=== PATIENT | female | born 1950 | race Caucasian/White ===

== ENCOUNTER 2018-01-26 16:14 | Observation (INO) | payer MEDICARE, OTHER ==
[2018-01-26 17:24] VITALS: BP 155/69; PULSE 65; RESP 18; TEMP 98; O2SAT 99
[2018-01-26 18:09] LABS: AUTOMATED NEUTROPHIL # 3.2 TH/MM3 (1.8-7.7); BASOPHIL % 0.8 % (0.0-2.0); EOSINOPHIL # 0.1 TH/MM3 (0-0.4); EOSINOPHIL % 1.9 % (0.0-4.0); HEMATOCRIT 38.2 % (35.0-46.0); HEMOGLOBIN 12.9 GM/DL (11.6-15.3); LYMPH % 31.4 % (9.0-44.0); LYMPHOCYTE # 1.6 TH/MM3 (1.0-4.8); MEAN CELL VOLUME 92.5 FL (80.0-100.0); MEAN CORPUSCULAR HEMOGLOBIN 31.1 PG (27.0-34.0); MEAN CORPUSCULAR HGB CONC 33.7 % (32.0-36.0); MEAN PLATELET VOLUME 9.4 FL (7.0-11.0); MONO % 5.4 % (0.0-8.0); MONOCYTE # 0.3 TH/MM3 (0-0.9); NEUT % 60.5 % (16.0-70.0); PLATELET COUNT 160 TH/MM3 (150-450); RED BLOOD COUNT 4.13 MIL/MM3 (4.00-5.30); RED CELL DISTRIBUTION WIDTH 13.6 % (11.6-17.2); WHITE BLOOD COUNT 5.3 TH/MM3 (4.0-11.0)
--- NOTE | 2018-01-26 18:16 | RADRPT ---
EXAM DATE: 01/26/2018 6:06 PM EDT AGE/SEX: 67 years / Female INDICATIONS: Altered mental status. CLINICAL DATA: This is the patient's initial encounter. Patient reports that signs and symptoms have been present for 1 day and indicates a pain score of Nonresponsive. MEDICAL/SURGICAL HISTORY: . Alzheimers.Cerebral ischemia. None. RADIATION DOSE: 35.14 CTDI (mGy) COMPARISON: . TECHNIQUE: CT of the head without contrast. Using automated exposure control and adjustment of the mA and/or kV according to patient size, radiation dose was kept as low as reasonably achievable to ob tain optimal diagnostic quality images. FINDINGS: Cerebrum: The ventricles are normal for age. No evidence of midline shift, mass lesion, hemorrhage or acute infarction. No extraaxial fluid collections are seen. Posterior Fossa: The cerebellum and brainstem are intact. The 4th ventricle is midline. The cerebe llopontine angle is unremarkable. Extracranial: The visualized portion of the orbits is intact. Skull: The calvaria is intact. No evidence of skull fracture. CONCLUSION: 1. Negative CT Head non contrast. Electronically signed by: Burton Mera MD 01/26/2018 6:14 PM EDT
--- NOTE | 2018-01-26 18:25 | PD ---
HPI Chief Complaint: Altered Mental Status Time Seen by Provider: 17:09 Travel History International Travel<30 days: No Contact w/Intl Traveler<30days: No Traveled to known affect area: No History of Present Illness HPI 67-year-old female that presents to the ED for evaluation of Rex shen. Patient was Rex acted after apparently she has been acting up. She apparently put a bag on her head and has been somewhat aggressive. She denies any injuries but the patient herself is nonverbal and cannot really give us any information. She does appear to have a history of Alzheimer's and apparently she is a hospice patient. She takes different medications that are all given by the hospice service. She voices no complaints to me and appears to be in no acute distress. She was Rex acted for her own safety. She is a DNR. Again history is very limited because of the patient's mental status. PFSH Past Medical History Alzheimer's Disease: Yes Anxiety: Yes Medical other: Yes (cerebral ischemia ) Tetanus Vaccination: Unknown Past Surgical History Surgical History: Unable to Obtain Social History Alcohol Use: No Tobacco Use: No Substance Use: No Allergies-Medications (Allergen,Severity, Reaction): Coded Allergies: trazodone (Verified Allergy, Unknown, 01/26/18) Reported Meds & Prescriptions Reported Meds & Active Scripts Active Reported Hyoscyamine Sulfate 0.125 Mg Sub Sennosides 8.6 Mg Tab 8.6 Mg PO HS Quetiapine (Quetiapine Fumarate) 100 Mg Tab 100 Mg PO BID Prochlorperazine Maleate 10 Mg Tab 10 Mg PO Q6H PRN Paxil Liq (Paroxetine HCl) 10 Mg/5 Ml Siobhan 20 Mg PO DAILY Lorazepam 0.5 Mg Tab 0.5 Mg PO Q4H PRN Review of Systems ROS Limitations: Altered Mental Status, Poor Historian Except as stated in HPI: all other systems reviewed are Neg Physical Exam Exam Limitations: Altered Mental Status, Poor Historian Narrative GENERAL: SKIN: Warm and dry. HEAD: Atraumatic. Normocephalic. EYES: Pupils equal and round. No scleral icterus. No injection or drainage. ENT: No nasal bleeding or discharge. Mucous membranes pink and moist. Tongue is midline. No uvula deviation. NECK: Trachea midline. No JVD. CARDIOVASCULAR: Regular rate and rhythm. No murmurs, S3, S4. RESPIRATORY: No accessory muscle use. Clear to auscultation. Breath sounds equal bilaterally. GASTROINTESTINAL: Abdomen soft, non-tender, nondistended. Hepatic and splenic margins not palpable. MUSCULOSKELETAL: Extremities without clubbing, cyanosis, or edema. No obvious deformities. Full range of motion of the upper and lower extremities bilaterally. 2+ pulses bilaterally. NEUROLOGICAL: Awake and alert. No obvious cranial nerve deficits. Motor grossly within normal limits. Five out of 5 muscle strength in the arms and legs. Normal speech. PSYCHIATRIC: Appropriate mood and affect; insight and judgment normal. Data Data Last Documented VS Vital Signs Date Time Temp Pulse Resp B/P (MAP) Pulse Ox O2 Delivery O2 Flow Rate FiO2 01/26/18 17:24 98.0 65 18 155/69 (97) 99 Room Air Orders Orders Complete Blood Count With Diff (01/26/18 17:19) Comprehensive Metabolic Panel (01/26/18 17:19) Urinalysis - C+S If Indicated (01/26/18 17:19) Magnesium (Mg) (01/26/18 17:19) Thyroid Stimulating Hormone (01/26/18 17:19) Ct Brain W/O Iv Contrast(Rout) (01/26/18 17:19) Iv Access Insert/Monitor (01/26/18 17:19) Urinary Catheter Insert/Apply (01/26/18 17:19) Drug Screen, Random Urine (01/26/18 17:19) Alcohol (Ethanol) (01/26/18 17:19) ^ Sitter (01/26/18 17:21) Psych Screen (01/26/18 17:40) Urine Culture (01/26/18 17:35) Ceftriaxone Inj (Rocephin Inj) (01/26/18 18:45) Diet As Tolerated (01/26/18 18:56) Admit Order (Ed Use Only) (01/26/18 19:40) Labs Laboratory Tests Test 01/26/18 17:30 01/26/18 17:35 White Blood Count 5.3 TH/MM3 Red Blood Count 4.13 MIL/MM3 Hemoglobin 12.9 GM/DL Hematocrit 38.2 % Mean Corpuscular Volume 92.5 FL Mean Corpuscular Hemoglobin 31.1 PG Mean Corpuscular Hemoglobin Concent 33.7 % Red Cell Distribution Width 13.6 % Platelet Count 160 TH/MM3 Mean Platelet Volume 9.4 FL Neutrophils (%) (Auto) 60.5 % Lymphocytes (%) (Auto) 31.4 % Monocytes (%) (Auto) 5.4 % Eosinophils (%) (Auto) 1.9 % Basophils (%) (Auto) 0.8 % Neutrophils # (Auto) 3.2 TH/MM3 Lymphocytes # (Auto) 1.6 TH/MM3 Monocytes # (Auto) 0.3 TH/MM3 Eosinophils # (Auto) 0.1 TH/MM3 Basophils # (Auto) 0.0 TH/MM3 CBC Comment DIFF FINAL Differential Comment Blood Urea Nitrogen 21 MG/DL Creatinine 0.71 MG/DL Random Glucose 121 MG/DL Total Protein 6.8 GM/DL Albumin 3.7 GM/DL Calcium Level 8.7 MG/DL Magnesium Level 2.4 MG/DL Alkaline Phosphatase 66 U/L Aspartate Amino Transf (AST/SGOT) 19 U/L Alanine Aminotransferase (ALT/SGPT) 18 U/L Total Bilirubin 0.3 MG/DL Sodium Level 142 MEQ/L Potassium Level 3.2 MEQ/L Chloride Level 106 MEQ/L Carbon Dioxide Level 28.8 MEQ/L Anion Gap 7 MEQ/L Estimat Glomerular Filtration Rate 83 ML/MIN Thyroid Stimulating Hormone 3rd Gen 1.300 uIU/ML Ethyl Alcohol Level LESS THAN 3 MG/DL Urine Color YELLOW Urine Turbidity HAZY Urine pH 6.0 Urine Specific [place] 1.029 Urine Protein TRACE mg/dL Urine Glucose (UA) NEG mg/dL Urine Ketones NEG mg/dL Urine Occult Blood NEG Urine Nitrite POS Urine Bilirubin NEG Urine Urobilinogen LESS THAN 2.0 MG/DL Urine Leukocyte Esterase LARGE Urine RBC 2 /hpf Urine WBC /hpf Urine Amorphous Sediment RARE Urine Bacteria MANY /hpf Urine Mucus MANY /lpf Microscopic Urinalysis Comment CULTURE INDICATED Urine Opiates Screen NEG Urine Barbiturates Screen NEG Urine Amphetamines Screen NEG Urine Benzodiazepines Screen NEG Urine Cocaine Screen NEG Urine Cannabinoids Screen NEG MDM Medical Decision Making Medical Screen Exam Complete: Yes Emergency Medical Condition: Yes Medical Record Reviewed: Yes Interpretation(s) CBC & BMP Diagram 01/26/18 17:30 Total Protein 6.8, Albumin 3.7, Calcium Level 8.7, Magnesium Level 2.4, Alkaline Phosphatase 66, Aspartate Amino Transf (AST/SGOT) 19, Alanine Aminotransferase (ALT/SGPT) 18, Total Bilirubin 0.3 UA shows UTI Last Impressions Head CT 01/26/18 7948 Signed Impressions: CONCLUSION: 1. Negative CT Head non contrast. Differential Diagnosis Depression versus suicidal ideation versus anxiety versus adjustment disorder versus mood disorder versus bipolar disorder versus schizophrenia versus paranoid disorder versus psychosis versus substance abuse versus alcohol abuse versus alcohol induced psychosis versus homicidality addition versus cutting versus personality disorder versus UTI Narrative Course 67-year-old female that presents to the ED for evaluation of Goodman act. Patient was properly examined and was found to have signs and symptoms of unclear etiology but appear to be altered mental status with possible psychiatric in nature. She does have a significant history of Alzheimer's and she is in hospice for this. History is very limited and only obtained from paperwork provided. Labs were ordered. Urine was ordered. Psych screen was ordered. Labs and imaging were essentially unremarkable return for UTI. I spoke with the hospice nurse who is concerned that the patient cannot [facility] back [facility] the [facility] as the prison apparently will not take the patient back secondary to agitation. They want us to see we could admit the patient as patient will likely need case management involvement to get her placed as well as monitoring for her behavioral issues. Case was discussed with the residents who agreed to admission. This was discussed with my attending who agrees with plan. Patient will likely benefit from psych evaluation for further treatment of the Alzheimer's and behavioral issues. Diagnosis Primary Impression: Alzheimer disease Qualified Codes: G30.1 - Alzheimer's disease with late onset; F02.81 - Dementia in other diseases classified elsewhere with behavioral disturbance Admitting Information Admitting Physician Requests: Ivan Acosta Jan 26, 2018 18:25
[2018-01-26 18:31] LABS: ALBUMIN 3.7 GM/DL (3.4-5.0); ALT (GPT) 18 U/L (10-53); AST (GOT) 19 U/L (15-37); BICARBONATE 28.8 MEQ/L (21.0-32.0); BLOOD UREA NITROGEN 21 MG/DL (7-18); CALCIUM 8.7 MG/DL (8.5-10.1); CHLORIDE 106 MEQ/L (98-107); CREATININE 0.71 MG/DL (0.50-1.00); GLOMERULAR FILTRATION RATE 83 ML/MIN (>89); GLUCOSE,RANDOM 121 MG/DL (74-106); MAGNESIUM 2.4 MG/DL (1.5-2.5); SODIUM (NA) 142 MEQ/L (136-145)
[2018-01-26 18:32] LABS: AMORPHOUS SEDIMENT, URINE RARE; BACTERIA, URINE MANY /hpf; BILIRUBIN, URINE NEG (NEG); BLOOD, URINE NEG (NEG); GLUCOSE,URINE NEG (NEG); KETONE, URINE NEG (NEG); MUCUS URINE MANY /lpf (OCC); NITRITE,URINE POS (NEG); URINE COLOR YELLOW (YELLW/STRAW); URINE LEUKOCYTE ESTERASE LARGE (NEG)
[2018-01-26 18:41] LABS: ALKALINE PHOSPHATASE 66 U/L (45-117); TOTAL BILIRUBIN ADULT 0.3 MG/DL (0.2-1.0); TOTAL PROTEIN 6.8 GM/DL (6.4-8.2)
[2018-01-26] MEDS ORDERED: cefTRIAXone INJ 1,000 MG in SODIUM CHLORIDE 0.9% INJ 100 ML IV ONE (18:45)
[2018-01-26] MEDS ORDERED: QUET1TAB8 PO (19:10)
[2018-01-26] MEDS ORDERED: SENN8.6T81 PO (19:10)
[2018-01-26] MEDS ORDERED: LORA0.5T PO (19:10)
[2018-01-26] MEDS ORDERED: HYOS0.1261 (19:10)
[2018-01-26] MEDS ORDERED: PROC10TA PO (19:10)
[2018-01-26] MEDS ORDERED: PARO10S PO (19:10)
--- NOTE | 2018-01-26 20:49 | HHI.HP ---
[facility] Family Medicine Primary Care Physician Yahir Bowling M.D. Admission Diagnosis altered mental status, UTI Diagnoses: Chief Complaint: AMS, Oneal acted for suicide attempt International Travel<30 Days: No Contact w/Intl Traveler<30days: No Known Affected Area: No History of Present Illness Ms Mcguire is a 67 YO female w/PMHx of Alzheimers dementia, cerebral ischemia unspecified, and recurrent UTIs brought to the ED and Goodman Acted after an apparent suicide attempt at her SNF. Records indicate she placed a bag over her head at [facility] which was believed at the time to be a suicide attempt and was brought to the ED from there. 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 Pt is minimally verbal due to her dementia per phone discussion with her daughter Kimberly. Pt's , daughter and son live in [place] and indicate pt was recently placed with [facility]. Daughter believes her mother would not try to commit suicide as her mother lacks capacity to do so. Daughter believes her mother was altered due to a UTI which recurs frequently. and daughter have HCPOA/surrogate paperwork which is on her chart. Review of Systems ROS Limitations: Altered Mental Status, Uncooperative Past Family Social History Past Medical History Cerebral ischemia unspecified Alzheimers dementia Recurrent UTIs Past Surgical History could not obtain Reported Medications Reported Meds & Active Scripts Active Reported Hyoscyamine Sulfate 0.125 Mg Sub Sennosides 8.6 Mg Tab 8.6 Mg PO HS Quetiapine (Quetiapine Fumarate) 100 Mg Tab 100 Mg PO BID Prochlorperazine Maleate 10 Mg Tab 10 Mg PO Q6H PRN Paxil Liq (Paroxetine HCl) 10 Mg/5 Ml Siobhan 20 Mg PO DAILY Lorazepam 0.5 Mg Tab 0.5 Mg PO Q4H PRN Allergies: Coded Allergies: trazodone (Verified Allergy, Unknown, 01/26/18) Active Ordered Medications Current Medications Medications (Trade) Dose Ordered Sig/Tomas Route Start Time Stop Time Status Last Admin (Paxil Liq) 20 mg DAILY PO 01/27/18 09:00 (Compazine) 10 mg Q6H PRN PO 01/26/18 21:00 (Senokot) 8.6 mg HS PO 01/26/18 21:00 01/26/18 22:17 (NS Flush) 2 ml UNSCH PRN IV FLUSH 01/26/18 21:00 (NS Flush) 2 ml BID IV FLUSH 01/26/18 21:00 (Tylenol) 650 mg Q4H PRN PO 01/26/18 21:00 (Lovenox Inj) 40 mg Q24H SQ 01/26/18 21:00 01/26/18 21:00 (Narcan Inj) 0.4 mg UNSCH PRN IV PUSH 01/26/18 21:00 (SEROquel) 100 mg BID PO 01/27/18 09:00 (Ativan) 0.5 mg Q4H PRN PO 01/26/18 21:30 Ceftriaxone Sodium 1000 mg/ Sodium Chloride 100 ml @ 200 mls/hr Q24H IV 01/27/18 18:45 Sodium Chloride 1,000 ml @ 50 mls/hr Q20H IV 01/26/18 21:30 01/26/18 21:30 Family History could not obtain Social History Lives at [facility] (likely will not be able to go back) [facility] , daughter and son live in [place] Physical Exam Vital Signs Vital Signs Date Time Temp Pulse Resp B/P (MAP) Pulse Ox O2 Delivery O2 Flow Rate FiO2 01/26/18 17:24 98.0 65 18 155/69 (97) 99 Room Air Physical Exam GENERAL: This is a well-nourished, well-developed patient, minimally verbal and often speaks gibberish per her daughter, in NAD but appears a little anxious. SKIN: No rashes, ecchymoses or lesions. Cool and dry. HEAD: Atraumatic. Normocephalic. No temporal or scalp tenderness. EYES: Pupils equal round and reactive. Extraocular motions intact. No scleral icterus. No injection or drainage. ENT: Nose without drainage. Uvula midline. Airway patent. NECK: Trachea midline. No JVD or lymphadenopathy. Supple, nontender, no meningeal signs. CARDIOVASCULAR: Regular rate and rhythm without murmurs, gallops, or rubs. RESPIRATORY: Clear to auscultation. Breath sounds equal bilaterally. No wheezes , rales, or rhonchi. GASTROINTESTINAL: Abdomen soft, non-tender, nondistended. No hepato-splenomegaly , or palpable masses. No guarding. MUSCULOSKELETAL: Extremities without clubbing, cyanosis, or edema. No joint tenderness, effusion, or edema noted. No calf tenderness. Pt can ambulate around the room without difficulty. NEUROLOGICAL: Awake and alert. Cranial nerves II through XII intact. Motor and sensory grossly within normal limits. Pt has advanced dementia and can utter yes or no to questions, but are likely not accurate responses per her daughter. Laboratory Laboratory Tests Test 01/26/18 17:30 01/26/18 17:35 White Blood Count 5.3 Red Blood Count 4.13 Hemoglobin 12.9 Hematocrit 38.2 Mean Corpuscular Volume 92.5 Mean Corpuscular Hemoglobin 31.1 Mean Corpuscular Hemoglobin Concent 33.7 Red Cell Distribution Width 13.6 Platelet Count 160 Mean Platelet Volume 9.4 Neutrophils (%) (Auto) 60.5 Lymphocytes (%) (Auto) 31.4 Monocytes (%) (Auto) 5.4 Eosinophils (%) (Auto) 1.9 Basophils (%) (Auto) 0.8 Neutrophils # (Auto) 3.2 Lymphocytes # (Auto) 1.6 Monocytes # (Auto) 0.3 Eosinophils # (Auto) 0.1 Basophils # (Auto) 0.0 CBC Comment DIFF FINAL Differential Comment Blood Urea Nitrogen 21 Creatinine 0.71 Random Glucose 121 Total Protein 6.8 Albumin 3.7 Calcium Level 8.7 Magnesium Level 2.4 Alkaline Phosphatase 66 Aspartate Amino Transf (AST/SGOT) 19 Alanine Aminotransferase (ALT/SGPT) 18 Total Bilirubin 0.3 Sodium Level 142 Potassium Level 3.2 Chloride Level 106 Carbon Dioxide Level 28.8 Anion Gap 7 Estimat Glomerular Filtration Rate 83 Thyroid Stimulating Hormone 3rd Gen 1.300 Ethyl Alcohol Level LESS THAN 3 Urine Color YELLOW Urine Turbidity HAZY Urine pH 6.0 Urine Specific [place] 1.029 Urine Protein TRACE Urine Glucose (UA) NEG Urine Ketones NEG Urine Occult Blood NEG Urine Nitrite POS Urine Bilirubin NEG Urine Urobilinogen LESS THAN 2.0 Urine Leukocyte Esterase LARGE Urine RBC 2 Urine WBC Urine Amorphous Sediment RARE Urine Bacteria MANY Urine Mucus MANY Microscopic Urinalysis Comment CULTURE INDICATED Urine Opiates Screen NEG Urine Barbiturates Screen NEG Urine Amphetamines Screen NEG Urine Benzodiazepines Screen NEG Urine Cocaine Screen NEG Urine Cannabinoids Screen NEG Date/Time Source Procedure Growth Status 01/26/18 17:35 Urine Random Urine Urine Culture Pending Received Result Diagram: 01/26/18 1730 01/26/18 1730 Imaging Last Impressions Head CT 01/26/18 1719 Signed Impressions: CONCLUSION: 1. Negative CT Head non contrast. Septic Shock Reassessment Septic shock perfusion: reassessment completed Caprini VTE Risk Assessment Caprini VTE Risk Assessment: Mod/High Risk (score >= 2) Caprini Risk Assessment Model Point Value = 1 Point Value = 2 Point Value = 3 Point Value = 5 Age 41-60 Minor surgery BMI > 25 kg/m2 Swollen legs Varicose veins or History of unexplained or recurrent spontaneous Oral contraceptives or hormone replacement Sepsis (< 1 month) Serious lung disease, including pneumonia (< 1 month) Abnormal pulmonary function Acute myocardial infarction Congestive heart failure (< 1 month) History of inflammatory bowel disease Medical patient at bed rest Age 61-74 Arthroscopic surgery Major open surgery (> 45 min) Laparoscopic surgery (> 45 min) Malignancy Confined to bed (> 72 hours) Immobilizing plaster cast Central venous access Age >= 75 History of VTE Family history of VTE Factor V Leiden Prothrombin [id number] Lupus anticoagulant Anticardiolipin antibodies Elevated serum homocysteine Heparin-induced thrombocytopenia Other congenital or acquired thrombophilia Stroke (< 1 month) Elective arthroplasty Hip, pelvis, or leg fracture Acute spinal cord injury (< 1 month) Prophylaxis Regimen Total Risk Factor Score Risk Level Prophylaxis Regimen 0-1 Low Early ambulation 2 Moderate Order ONE of the following: *Sequential Compression Device (SCD) *Heparin 5000 units SQ BID 3-4 Higher Order ONE of the following medications: *Heparin 5000 units SQ TID *Enoxaparin/Lovenox 40 mg SQ daily (WT < 150 kg, CrCl > 30 mL/min) *Enoxaparin/Lovenox 30 mg SQ daily (WT < 150 kg, CrCl > 10-29 mL/min) *Enoxaparin/Lovenox 30 mg SQ BID (WT < 150 kg, CrCl > 30 mL/min) AND/OR *Sequential Compression Device (SCD) 5 or more Highest Order ONE of the following medications: *Heparin 5000 units SQ TID (Preferred with Epidurals) *Enoxaparin/Lovenox 40 mg SQ daily (WT < 150 kg, CrCl > 30 mL/min) *Enoxaparin/Lovenox 30 mg SQ daily (WT < 150 kg, CrCl > 10-29 mL/min) *Enoxaparin/Lovenox 30 mg SQ BID (WT < 150 kg, CrCl > 30 mL/min) AND *Sequential Compression Device (SCD) Assessment and Plan Assessment and Plan 67 YO female with unknown PMHx admitted after being Rex Acted for possible suicide attempt at [facility] and incidentally found to be hypokalemic and with a UTI. Pt is minimally verbal and lacks capacity to respond to questions. Pt's HCPOA/surrogates are her and daughter. Code Status DNR per daughter Discussed Condition With Dr Croinn Problem List: (1) Suicidal behavior ICD Codes: R46.89 - Other symptoms and signs involving appearance and behavior Plan: Pt placed a bag over her head at [facility] and was Rex Acted for attempting suicide. Pt's daughter does not believe her mother has capacity to attmept suicide and believes this action was 2/2 UTI and AMS. -Psychiatry consult -Sitter -Neuro checks (2) UTI (urinary tract infection) ICD Codes: N39.0 - Urinary tract infection, site not specified Plan: Pt with recurrent UTIs with UA positive nitrites and leuko esterase; urine cx pending -Rocephin 1g IV given in ED -Continue Rocephin 1g IV q24h until urine cx/susceptibility is known -Blood cx pending -CBC wnl (3) Altered mental status, unspecified ICD Codes: R41.82 - Altered mental status, unspecified Plan: Pt with UTI as above and possible suicide attempt; per pt's daughter, does not believe her mother would attempt suicide as she believes her mother lacks capacity to do so; believes AMS and suicide attempt to be 2/2 UTI. Pt Rex Acted. -CMP with hypokalemia to 3.2 -K-eff 50 meq PO once -BMP, CBC in AM -Psychiatry consult (4) Alzheimer disease ICD Codes: G30.9 - Alzheimer's disease, unspecified; F02.80 - Dementia in other diseases classified elsewhere without behavioral disturbance Status: Acute Plan: Plan as above (5) Delirium due to another medical condition ICD Codes: F05 - Delirium due to known physiological condition Plan: Continue pt's home medications -Seroquel 100mg BID -Paxil 20mg daily (6) Anxiety ICD Codes: F41.9 - Anxiety disorder, unspecified Plan: Per pt's daughter, she was concerned that we continue pt's home med: -Ativan 0.5mg q4h PRN (7) FEN/GI/PPx Plan: Fluids: NS IVF at 50mls/hr Electrolytes: hypokalemia as above; BMP to monitor Nutrition: regular basic diet -Nursing order to feed as pt cannot feed herself GI: none indicated PPx: Lovenox 40mg SQ daily Tylenol 650mg PO q4h temp >100.4 Continue pt's home meds: -Compazine 10mg PO q6h PRN nausea/vomiting -Senokot 8.6mg PO qhs Case Management consult Palliative Care consult Problem Qualifiers (1) Alzheimer disease: Qualified Codes: G30.1 - Alzheimer's disease with late onset; F02.81 - Dementia in other diseases classified elsewhere with behavioral disturbance Landon Chang MD R1 Jan 26, 2018 20:49
[2018-01-26] MEDS ORDERED: PROCHLORPERAZINE MALEATE 10 MG TAB PO PRN (21:00)
[2018-01-26] MEDS ORDERED: SODIUM CHLORIDE 0.9% FLUSH 10 ML FLUSH IV FLUSH PRN (21:00)
[2018-01-26] MEDS: ENOXAPARIN SODIUM 40 MG/0.4 ML SYRINGE SQ SCH (21:00)
[2018-01-26] MEDS ORDERED: NALOXONE HCL 0.4 MG/ML AMP IV PUSH PRN (21:00)
[2018-01-26] MEDS ORDERED: ACETAMINOPHEN 325 MG TAB PO PRN (21:00)
[2018-01-26] MEDS ORDERED: QUEtiapine FUMARATE 100 MG TAB PO SCH (21:00)
[2018-01-26] MEDS ORDERED: cefTRIAXone INJ 1,000 MG in SODIUM CHLORIDE 0.9% INJ 100 ML IV SCH (21:15)
[2018-01-26] MEDS ORDERED: POTASSIUM CHLORIDE 25 MEQ EFFERVESCENT TAB PO ONE (21:30)
[2018-01-26] MEDS: SODIUM CHLOR 0.9% 1000 ML INJ 1,000 ML IV SCH (21:30)
[2018-01-26] MEDS ORDERED: QUEtiapine FUMARATE 100 MG TAB PO ONE (21:30)
[2018-01-26] MEDS: SENNOSIDES 8.6 MG TAB PO SCH (22:17)
--- NOTE | 2018-01-26 22:19 | RADRPT ---
EXAM DATE: 01/26/2018 9:36 PM EDT AGE/SEX: 67 years / Female INDICATIONS: Short of breath. CLINICAL DATA: This is the patient's initial encounter. Patient reports that signs and symptoms have been present for 1 day and indicates a pain score of 0/10. MEDICAL/SURGICAL HISTORY: None. None. COMPARISON: None. FINDINGS: PA and lateral views of the chest demonstrate the lungs to be symmetrically aerated without evidence of mass, infiltrate or effusion. The cardiomediastinal contours are unremarkable. Osseous structures are intact. CONCLUSION: Negative examination. Electronically signed by: Burton Mera MD 01/26/2018 10:18 PM EDT
[2018-01-26 23:12] VITALS: BP 115/75; PULSE 65; RESP 18; TEMP 98.4; O2SAT 98
[2018-01-26] MEDS: SODIUM CHLORIDE 0.9% FLUSH 10 ML FLUSH IV FLUSH SCH (23:24)
[2018-01-27 04:00] VITALS: BP 109/66; PULSE 59; RESP 18; TEMP 98; O2SAT 97
[2018-01-27 04:33] LABS: AUTOMATED NEUTROPHIL # 1.8 TH/MM3 (1.8-7.7); EOSINOPHIL # 0.1 TH/MM3 (0-0.4); EOSINOPHIL % 2.8 % (0.0-4.0); HEMATOCRIT 39.4 % (35.0-46.0); HEMOGLOBIN 13.6 GM/DL (11.6-15.3); LYMPH % 46.1 % (9.0-44.0); LYMPHOCYTE # 1.9 TH/MM3 (1.0-4.8); MEAN CELL VOLUME 90.1 FL (80.0-100.0); MEAN CORPUSCULAR HEMOGLOBIN 31.2 PG (27.0-34.0); MEAN CORPUSCULAR HGB CONC 34.6 % (32.0-36.0); MEAN PLATELET VOLUME 9.2 FL (7.0-11.0); MONO % 7.7 % (0.0-8.0); MONOCYTE # 0.3 TH/MM3 (0-0.9); NEUT % 42.4 % (16.0-70.0); PLATELET COUNT 146 TH/MM3 (150-450); RED BLOOD COUNT 4.37 MIL/MM3 (4.00-5.30); RED CELL DISTRIBUTION WIDTH 13.8 % (11.6-17.2); WHITE BLOOD COUNT 4.1 TH/MM3 (4.0-11.0)
[2018-01-27 04:36] LABS: ALBUMIN 3.4 GM/DL (3.4-5.0); ALT (GPT) 18 U/L (10-53); AST (GOT) 16 U/L (15-37); BICARBONATE 27.8 MEQ/L (21.0-32.0); BLOOD UREA NITROGEN 16 MG/DL (7-18); CHLORIDE 112 MEQ/L (98-107); CREATININE 0.65 MG/DL (0.50-1.00); GLOMERULAR FILTRATION RATE 91 ML/MIN (>89); GLUCOSE,RANDOM 84 MG/DL (74-106); SODIUM (NA) 146 MEQ/L (136-145)
[2018-01-27 04:37] LABS: ALKALINE PHOSPHATASE 61 U/L (45-117); TOTAL BILIRUBIN ADULT 0.5 MG/DL (0.2-1.0); TOTAL PROTEIN 6.4 GM/DL (6.4-8.2)
[2018-01-27 08:00] VITALS: BP 116/64; PULSE 67; RESP 16; TEMP 97.4; O2SAT 97
[2018-01-27 09:13] VITALS: O2SAT 97
--- NOTE | 2018-01-27 09:28 | PD.PSY.CON ---
Provisional Diagnosis Admission Date Jan 26, 2018 at 19:42 [place] I. Major neurocognitive disorder, Alzheimer's type [place] II. Deferred History of Present Illness Service Psychiatry Consult Requested By ER team Reason for Consult Suicidal attempt Primary Care Physician Yahir Bowling M.D. HPI The patient is 67-year-old woman, domiciled in shelter, , with psychiatric history of Alzheimer's dementia, history of behavioral disturbance, she is on Seroquel 100 mg twice daily, Paxil 20 mg, no previous psychiatric hospitalizations, no previous suicide attempts, medical history cerebral ischemia with recurrent UTIs who was brought to the emergency department because she was in "suicidal" at her shelter facility. She resides in a memory unit there. She is at [facility] hospice patient. She was initially Goodman acted because she was putting a bag over her head. Patient was consulted to me to address suicidal attempt. EMR was reviewed. The lateral information from her son was obtained. On psychiatric evaluation the patient is poorly cooperative. She just answer some of my questions. Patient reports feeling okay. She denies pain, denies distress. She seems to be quite distant, disoriented, unaware of the surrounding. I asked her multiple times about suicidality, the patient denies. She does not seem to be internally stimulated. as er son, the patient seems to be at her baseline today. He clarifies that the patient does not communicate. She is severely demented. Her , her son and her daughter agreed that the patient does not have any previous psychiatric history no previous suicide attempts. 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 They clarified that suicidality is no inpatient values she was most probably confused believing that she was wearing a mask in the hospital. ( Review of Systems Constitutional: DENIES: Diaphoretic episodes, Fatigue, Fever, Weight gain, Weight loss, Chills, Dizziness, Change in appetite, Night Sweats Endocrine: DENIES: Abnorml menstrual pattern, Heat/cold intolerance, Polydipsia , Polyuria, Polyphagia Eyes: DENIES: Blurred vision, Diplopia, Eye inflammation, Eye pain, Vision loss , Photosensitivity, Double Vision Ears, nose, mouth, throat: DENIES: Tinnitus, Hearing loss, Vertigo, Nasal discharge, Oral lesions, Throat pain, Hoarseness, Ear Pain, Running Nose, Epistaxis, Sinus Pain, Toothache, Odynophagia Respiratory: DENIES: Apneas, Cough, Snoring, Wheezing, Hemoptysis, Sputum production, Shortness of breath Cardiovascular: DENIES: Chest pain, Palpitations, Syncope, Dyspnea on Exertion , PND, Lower Extremity Edema, Orthopnea, Claudication Gastrointestinal: DENIES: Abdominal pain, Black stools, Bloody stools, Constipation, Diarrhea, Nausea, Vomiting, Difficulty Swallowing, Anorexia Genitourinary: DENIES: Abnormal vaginal bleeding, Dysmenorrhea, Dyspareunia, Sexual dysfunction, Urinary frequency, Urinary incontinence, Urgency, Hematuria , Dysuria, Nocturia, Vaginal discharge Musculoskeletal: DENIES: Joint pain, Muscle aches, Stiffness, Joint Swelling, Back pain, Neck pain Integumentary: DENIES: Abnormal pigmentation, Pruritus, Rash, Nail changes, Breast masses, Breast skin changes, Nipple discharge Immunologic/allergic: DENIES: Eczema, Urticaria Neurologic: DENIES: Abnormal gait, Headache, Localized weakness, Paresthesias, Seizures, Speech Problems, Tremor, Poor Balance Psychiatric: COMPLAINS OF: Confusion, DENIES: Anxiety, Mood changes, Depression , Hallucinations, Agitation, Suicidal Ideation, Homicidal Ideation, Delusions Past Family Social History Coded Allergies: trazodone (Verified Allergy, Unknown, 01/26/18) Active Scripts Sulfamethoxazole-Trimethoprim (Bactrim DS) 800-160 Mg Tab, 1 TAB PO BID for Infection, #6 TAB 0 Refills Prov:Zully Parada MD R1 01/27/18 Reported Medications Hyoscyamine Sulfate (Hyoscyamine Sulfate) 0.125 Mg Sub 01/26/18 Sennosides (Sennosides) 8.6 Mg Tab, 8.6 MG PO HS for Constipation, TAB 0 Refills 01/26/18 Quetiapine (Quetiapine) 100 Mg Tab, 100 MG PO BID, #60 TAB 0 Refills 01/26/18 Prochlorperazine Maleate (Prochlorperazine Maleate) 10 Mg Tab, 10 MG PO Q6H Y for NAUSEA OR VOMITING, TAB 0 Refills 01/26/18 Paroxetine Liq (Paxil Liq) 10 Mg/5 Ml Siobhan, 20 MG PO DAILY, #300 ML 0 Refills 01/26/18 Lorazepam (Lorazepam) 0.5 Mg Tab, 0.5 MG PO Q4H Y for For mild anxiety / dyspnea , TAB 0 Refills 01/26/18 Current Medications Medications (Trade) Dose Ordered Sig/Tomas Route Start Time Stop Time Status Last Admin (Paxil Liq) 20 mg DAILY PO 01/27/18 09:00 (Compazine) 10 mg Q6H PRN PO 01/26/18 21:00 (Senokot) 8.6 mg HS PO 01/26/18 21:00 01/26/18 22:17 (NS Flush) 2 ml UNSCH PRN IV FLUSH 01/26/18 21:00 (NS Flush) 2 ml BID IV FLUSH 01/26/18 21:00 (Tylenol) 650 mg Q4H PRN PO 01/26/18 21:00 (Lovenox Inj) 40 mg Q24H SQ 01/26/18 21:00 01/26/18 21:00 (Narcan Inj) 0.4 mg UNSCH PRN IV PUSH 01/26/18 21:00 (SEROquel) 100 mg BID PO 01/27/18 09:00 (Ativan) 0.5 mg Q4H PRN PO 01/26/18 21:30 Ceftriaxone Sodium 1000 mg/ Sodium Chloride 100 ml @ 200 mls/hr Q24H IV 01/27/18 18:45 Sodium Chloride 1,000 ml @ 50 mls/hr Q20H IV 01/26/18 21:30 01/26/18 21:30 Family Psych History No family psychiatric history Social History The patient was born and raised in [place], she lives in a shelter, she is , has 2 kids, 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 2) Family support Physical Exam Vital Signs Vital Signs Date Time Temp Pulse Resp B/P (MAP) Pulse Ox O2 Delivery O2 Flow Rate FiO2 01/27/18 09:13 97 21 01/27/18 08:00 97.4 67 16 116/64 (81) 01/26/18 17:24 Room Air I/O 01/27/18 01/27/18 01/28/18 08:00 16:00 00:00 Intake Total 360 ml Balance 360 ml Lab Results Test 01/26/18 17:30 01/26/18 17:35 01/27/18 04:04 White Blood Count 5.3 TH/MM3 4.1 TH/MM3 Red Blood Count 4.13 MIL/MM3 4.37 MIL/MM3 Hemoglobin 12.9 GM/DL 13.6 GM/DL Hematocrit 38.2 % 39.4 % Mean Corpuscular Volume 92.5 FL 90.1 FL Mean Corpuscular Hemoglobin 31.1 PG 31.2 PG Mean Corpuscular Hemoglobin Concent 33.7 % 34.6 % Red Cell Distribution Width 13.6 % 13.8 % Platelet Count 160 TH/MM3 146 TH/MM3 Mean Platelet Volume 9.4 FL 9.2 FL Neutrophils (%) (Auto) 60.5 % 42.4 % Lymphocytes (%) (Auto) 31.4 % 46.1 % Monocytes (%) (Auto) 5.4 % 7.7 % Eosinophils (%) (Auto) 1.9 % 2.8 % Basophils (%) (Auto) 0.8 % 1.0 % Neutrophils # (Auto) 3.2 TH/MM3 1.8 TH/MM3 Lymphocytes # (Auto) 1.6 TH/MM3 1.9 TH/MM3 Monocytes # (Auto) 0.3 TH/MM3 0.3 TH/MM3 Eosinophils # (Auto) 0.1 TH/MM3 0.1 TH/MM3 Basophils # (Auto) 0.0 TH/MM3 0.0 TH/MM3 CBC Comment DIFF FINAL DIFF FINAL Differential Comment Blood Urea Nitrogen 21 MG/DL 16 MG/DL Creatinine 0.71 MG/DL 0.65 MG/DL Random Glucose 121 MG/DL 84 MG/DL Total Protein 6.8 GM/DL 6.4 GM/DL Albumin 3.7 GM/DL 3.4 GM/DL Calcium Level 8.7 MG/DL 9.0 MG/DL Magnesium Level 2.4 MG/DL Alkaline Phosphatase 66 U/L 61 U/L Aspartate Amino Transf (AST/SGOT) 19 U/L 16 U/L Alanine Aminotransferase (ALT/SGPT) 18 U/L 18 U/L Total Bilirubin 0.3 MG/DL 0.5 MG/DL Sodium Level 142 MEQ/L 146 MEQ/L Potassium Level 3.2 MEQ/L 3.8 MEQ/L Chloride Level 106 MEQ/L 112 MEQ/L Carbon Dioxide Level 28.8 MEQ/L 27.8 MEQ/L Anion Gap 7 MEQ/L 6 MEQ/L Estimat Glomerular Filtration Rate 83 ML/MIN 91 ML/MIN Thyroid Stimulating Hormone 3rd Gen 1.300 uIU/ML Ethyl Alcohol Level LESS THAN 3 MG/DL Urine Color YELLOW Urine Turbidity HAZY Urine pH 6.0 Urine Specific [place] 1.029 Urine Protein TRACE mg/dL Urine Glucose (UA) NEG mg/dL Urine Ketones NEG mg/dL Urine Occult Blood NEG Urine Nitrite POS Urine Bilirubin NEG Urine Urobilinogen LESS THAN 2.0 MG/DL Urine Leukocyte Esterase LARGE Urine RBC 2 /hpf Urine WBC /hpf Urine Amorphous Sediment RARE Urine Bacteria MANY /hpf Urine Mucus MANY /lpf Microscopic Urinalysis Comment CULTURE INDICATED Urine Opiates Screen NEG Urine Barbiturates Screen NEG Urine Amphetamines Screen NEG Urine Benzodiazepines Screen NEG Urine Cocaine Screen NEG Urine Cannabinoids Screen NEG Hematology Comments Date/Time Source Procedure Growth Status 01/27/18 04:04 Blood Peripheral Aerobic Blood Culture Pending Received 01/27/18 04:04 Blood Peripheral Anaerobic Blood Culture Pending Received 01/26/18 17:35 Urine Random Urine Urine Culture Pending Received Mental Status Examination Appearance: Appropriate Consciousness: Obtunded Orientation: Person Motor Activity: Normal gait Speech: Hesitant Language: Adequate, Other (Selectively mute) Fund of Knowledge: Inadequate Attention and Concentration: Inadequate Memory: Impaired Mood: Oppositional Affect: Blunt Thought Content: Thought blocking Hallucination Type: None Delusion Type: None Suicidal Ideation: No Suicidal Plan: No Suicidal Intention: No Homicidal Ideation: No Homicidal Plan: No Homicidal Intention: No Insight: Fair Judgment: Impulsive Assessment & Plan Problem List: (1) Delirium due to another medical condition ICD Codes: F05 - Delirium due to known physiological condition Assessment & Plan: Continue quetiapine 100 mg twice daily for behavioral dysregulation. Paxil 20 mg for depression. the patient is not a danger to self and other at this moment. Patient is severely demented, poorly cooperative, mostly unaware of surrounding. No suicidal ideation reported, sprays are demonstrated by the patient in the ER. As per family suicidality is not in the values of the patient . Dementia is so severe that executive function needed to perpetrate a planned suicidal attempt will be very difficult. She does not meet cafeteria for psychiatric admission. She is psychically clear to go back to [facility] and continue Hospice care. Goodman act will be lifted. Assessment & Plan Estimated LOS: Jarred Regan MD Jan 27, 2018 09:28
[2018-01-27] MEDS: QUEtiapine FUMARATE 100 MG TAB PO SCH ×2 (09:46→23:32)
[2018-01-27] MEDS: PARoxetine HCL SUSP 20 MG/10 ML UDC PO SCH (11:24)
--- NOTE | 2018-01-27 12:30 | HHI.FPPN ---
Subjective Remarks 67-year-old female with known Alzheimer's dementia L and cerebral ischemia with recurrent UTIs who was brought to the emergency department because she was in "suicidal" at her [facility] facility. She resides in a memory unit there. She is at [facility] hospice patient. She was initially Goodman acted because she was putting a bag over her head. She is seen this morning with the medicine team. Her son and are present. They initially were told that she could not go back to her usp facility but they are accepting her back with hospice care. Per son, she seems to be at her baseline today. She did have a low potassium which was repleted and she is given a couple of doses of Rocephin IV and will be sent out with p.o. antibiotics. Family requests that she be on UTI prophylaxis medication and we suggested they take that up with the physician who cares for her in the facility. Objective Vitals Vital Signs Date Time Temp Pulse Resp B/P (MAP) Pulse Ox O2 Delivery O2 Flow Rate FiO2 01/27/18 09:13 97 21 01/27/18 08:00 97.4 67 16 116/64 (81) 97 01/27/18 04:00 98.0 59 18 109/66 (80) 97 01/26/18 23:12 98.4 65 18 115/75 (88) 98 01/26/18 23:07 01/26/18 17:24 98.0 65 18 155/69 (97) 99 Room Air I/O 01/26/18 01/26/18 01/26/18 01/27/18 01/27/18 01/27/18 07:00 15:00 23:00 07:00 15:00 23:00 Intake Total 100 ml 360 ml Balance 100 ml 360 ml Intake Oral 360 ml IV Total 100 ml # Voids 4 # Bowel Movements 0 Result Diagram: 01/27/184 01/27/18 0404 Objective Remarks O. CONSTITUTIONAL/GEN: normally nourished, in NAD. Smiles occasionally. Fidgety. EYES: conjunctiva normal, PERRLA, EOMI. ENT: Mouth and pharynx normal. NECK: thyroid midline, carotids symmetrical. LUNGS: clear A-P, respiratory effort is normal. CARDIOVASCULAR: RR without murmur or gallop. No significant edema. GI/ABD: soft without masses, without organomegaly. Active bowel sounds NEURO: No focal deficits. SKIN: color normal, no rashes noted. HEME/LYMPH: no bruising, petechia or significant adenopathy MUSC: back is normal in appearance. Extremities are normal in appearance. PSYCH/MENTAL STATUS: Alert, may be oriented to self only. A/P Assessment and Plan 67 YO female with unknown PMHx admitted after being Goodman Acted for possible suicide attempt at [facility] and incidentally found to be hypokalemic and with a UTI. Pt is minimally verbal and lacks capacity to respond to questions. Pt's HCPOA/surrogates are her and daughter. Discharge Planning Discharge back to her facility today with hospice care. Attending Attestation GENERAL: SKIN: Warm and dry. HEAD: Atraumatic. Normocephalic. EYES: Pupils equal and round. No scleral icterus. No injection or drainage. ENT: No nasal bleeding or discharge. Mucous membranes pink and moist. NECK: Trachea midline. No JVD. CARDIOVASCULAR: Regular rate and rhythm. RESPIRATORY: No accessory muscle use. Clear to auscultation. Breath sounds equal bilaterally. GASTROINTESTINAL: Abdomen soft, non-tender, nondistended. Hepatic and splenic margins not palpable. MUSCULOSKELETAL: Extremities without clubbing, cyanosis, or edema. No obvious deformities. NEUROLOGICAL: Awake and alert. No obvious cranial nerve deficits. Motor grossly within normal limits. Five out of 5 muscle strength in the arms and legs. Normal speech. PSYCHIATRIC: Appropriate mood and affect; insight and judgment normal. Problem List: (1) Suicidal behavior ICD Codes: R46.89 - Other symptoms and signs involving appearance and behavior Status: Resolved Plan: Pt placed a bag over her head at [facility] and was Goodman Acted for attempting suicide. Pt's daughter does not believe her mother has capacity to attmept suicide and believes this action was 2/2 UTI and AMS. Rex act lifted by psych. She will return today to her facility in the memory care unit. (2) UTI (urinary tract infection) ICD Codes: N39.0 - Urinary tract infection, site not specified Plan: Pt with recurrent UTIs with UA positive nitrites and leuko esterase; urine cx pending -Rocephin 1g IV given in ED, repeat x1 today and then discharge on p.o. antibiotics -CBC wnl (3) Altered mental status, unspecified ICD Codes: R41.82 - Altered mental status, unspecified Status: Chronic Plan: Pt with UTI as above and possible suicide attempt; per pt's daughter, does not believe her mother would attempt suicide as she believes her mother lacks capacity to do so; believes AMS and suicide attempt to be 2/2 UTI. Pt Goodman Acted. -CMP with hypokalemia to 3.2 -K-eff 50 meq PO once -BMP, CBC in AM -Psychiatry consult (4) Alzheimer disease ICD Codes: G30.9 - Alzheimer's disease, unspecified; F02.80 - Dementia in other diseases classified elsewhere without behavioral disturbance Status: Chronic Plan: Plan as above (5) Delirium due to another medical condition ICD Codes: F05 - Delirium due to known physiological condition Plan: Continue pt's home medications -Seroquel 100mg BID -Paxil 20mg daily (6) Anxiety ICD Codes: F41.9 - Anxiety disorder, unspecified Plan: Per pt's daughter, she was concerned that we continue pt's home med: -Ativan 0.5mg q4h PRN (7) FEN/GI/PPx Plan: Fluids: NS IVF at 50mls/hr Electrolytes: hypokalemia as above; BMP to monitor Nutrition: regular basic diet -Nursing order to feed as pt cannot feed herself GI: none indicated PPx: Lovenox 40mg SQ daily Tylenol 650mg PO q4h temp >100.4 Continue pt's home meds: -Compazine 10mg PO q6h PRN nausea/vomiting -Senokot 8.6mg PO qhs Case Management consult Palliative Care consult Problem Qualifiers (1) Alzheimer disease: Qualified Codes: G30.1 - Alzheimer's disease with late onset; F02.81 - Dementia in other diseases classified elsewhere with behavioral disturbance Yessy Larios MD Jan 27, 2018 12:30
[2018-01-27 12:33] VITALS: BP 97/54; PULSE 62; RESP 18; TEMP 97.5; O2SAT 96
[2018-01-27] MEDS: SODIUM CHLORIDE 0.9% FLUSH 10 ML FLUSH IV FLUSH SCH ×2 (12:46→23:33)
--- NOTE | 2018-01-27 15:34 | HHI.DCPOC ---
Discharge Care Plan Diagnosis: (1) Altered mental status, unspecified (2) Suicidal behavior (3) Alzheimer disease Goals to Promote Your Health * To prevent worsening of your condition and complications * To maintain your health at the optimal level Directions to Meet Your Goals Take your medications as prescribed Follow your dietary instruction Follow activity as directed Keep your appointments as scheduled Take your immunizations and boosters as scheduled If your symptoms worsen call your PCP, if no PCP go to Urgent Care Center or Emergency Room Smoking is Dangerous to Your Health. Avoid second hand smoke Call the 24-hour hour crisis hotline for domestic abuse at Zully Parada MD R1 Jan 27, 2018 15:34
[2018-01-27] MEDS ORDERED: BACT800T5 PO ×2 (15:50→16:09)
[2018-01-27 17:53] VITALS: BP 124/71; PULSE 76; RESP 18; TEMP 98.6; O2SAT 95
[2018-01-27] MEDS: SODIUM CHLOR 0.9% 1000 ML INJ 1,000 ML IV SCH (17:59)
[2018-01-27] MEDS: LORazepam 0.5 MG TAB PO PRN ×2 (17:59→23:32)
[2018-01-27] MEDS ORDERED: cefTRIAXone INJ 1,000 MG in SODIUM CHLORIDE 0.9% INJ 100 ML IV SCH (18:45)
[2018-01-27 19:38] VITALS: BP 134/72; PULSE 64; RESP 17; O2SAT 97
[2018-01-27] MEDS: SENNOSIDES 8.6 MG TAB PO SCH (23:32)
[2018-01-27] MEDS: ENOXAPARIN SODIUM 40 MG/0.4 ML SYRINGE SQ SCH (23:33)
[2018-01-28] VITALS: BP 122/73; PULSE 66; RESP 17; TEMP 98.3; O2SAT 96
--- NOTE | 2018-01-28 08:38 | HHI.FPPN ---
Subjective Remarks 67 yo female admitted after reported suicide attempt, altered mental status, and found to have UTI now being seen in follow up. She has severe dementia and is unable to provide history. RN reports she did well overnight, though tried to get out of bed on her own twice. No new symptoms reported. (Pascual Cronin MD R2) Objective Vitals Vital Signs Date Time Temp Pulse Resp B/P (MAP) Pulse Ox O2 Delivery O2 Flow Rate FiO2 01/28/18 00:00 98.3 66 17 122/73 (89) 96 01/27/18 19:38 64 17 134/72 (92) 97 01/27/18 17:53 98.6 76 18 124/71 (88) 95 01/27/18 12:33 97.5 62 18 97/54 (68) 96 01/27/18 09:13 97 21 I/O 01/27/18 01/27/18 01/27/18 01/28/18 01/28/18 01/28/18 07:00 15:00 23:00 07:00 15:00 23:00 Intake Total 360 ml Balance 360 ml Intake Oral 360 ml # Voids 4 # Bowel Movements 0 (Pascual Cronin MD R2) Result Diagram: 01/27/18 0404 01/27/18 0404 Imaging Last Impressions Chest X-Ray 01/26/182056 Signed Impressions: CONCLUSION: Negative examination. Head CT 01/26/181718 Signed Impressions: CONCLUSION: 1. Negative CT Head non contrast. Objective Remarks CONSTITUTIONAL/GEN: normally nourished, in NAD. Smiles occasionally. Fidgety. LUNGS: clear A-P, respiratory effort is normal. CARDIOVASCULAR: RR without murmur or gallop. No significant edema. NEURO/PSYCH: Awake, poor attention, intermittent alertness. No focal deficits. SKIN: color normal, no rashes noted. MUSC: No peripheral cyanosis or edema Medications and IVs Current Medications Medications (Trade) Dose Ordered Sig/Tomas Route Start Time Stop Time Status Last Admin (Paxil Liq) 20 mg DAILY PO 01/27/18 09:00 01/27/18 11:24 (Compazine) 10 mg Q6H PRN PO 01/26/18 21:00 (Senokot) 8.6 mg HS PO 01/26/18 21:00 01/27/18 23:32 (NS Flush) 2 ml UNSCH PRN IV FLUSH 01/26/18 21:00 (NS Flush) 2 ml BID IV FLUSH 01/26/18 21:00 01/27/18 12:46 (Tylenol) 650 mg Q4H PRN PO 01/26/18 21:00 (Lovenox Inj) 40 mg Q24H SQ 01/26/18 21:00 01/27/18 23:33 (Narcan Inj) 0.4 mg UNSCH PRN IV PUSH 01/26/18 21:00 (SEROquel) 100 mg BID PO 01/27/18 09:00 01/27/18 23:32 (Ativan) 0.5 mg Q4H PRN PO 01/26/18 21:30 01/27/18 23:32 Ceftriaxone Sodium 1000 mg/ Sodium Chloride 100 ml @ 200 mls/hr Q24H IV 01/27/18 18:45 01/27/18 18:00 Sodium Chloride 1,000 ml @ 50 mls/hr Q20H IV 01/26/18 21:30 01/27/18 17:59 (Pascual Cronin MD R2) A/P Assessment and Plan 67 YO female with dementia presenting with: Discharge Planning Discharge back to her facility today with hospice care. (Pascual Cronin MD R2) Attending Attestation Patient seen and examined, discussed with Dr. Cronin and with nurse Daniels from [facility]. Our family caseworker are working with the food preparation worker to obtain a facility to accept her as [facility] has thus far declined to take her back. Anticipate discharge today if an appropriate facility is located. Patient is stable from our perspective. I agree with the findings and with the plan as documented. (Yessy Larios MD) Problem List: (1) Suicidal behavior ICD Codes: R46.89 - Other symptoms and signs involving appearance and behavior Status: Resolved Plan: Pt placed a bag over her head at [facility] and was Goodman Acted for attempting suicide. Pt's daughter does not believe her mother has capacity to attmept suicide and believes this action was 2/2 UTI and AMS. Rex act lifted by psych. She will return today to her facility in the memory care unit. (2) UTI (urinary tract infection) ICD Codes: N39.0 - Urinary tract infection, site not specified Plan: Pt with recurrent UTIs with UA positive nitrites and leuko esterase; urine cx pending -Continue Rocephin while hospitalized and then discharge on p.o. antibiotics (3) Altered mental status, unspecified ICD Codes: R41.82 - Altered mental status, unspecified Status: Chronic Plan: Pt with UTI as above and possible suicide attempt; per pt's daughter, does not believe her mother would attempt suicide as she believes her mother lacks capacity to do so; believes AMS and suicide attempt to be 2/2 UTI. Pt Goodman Acted. -CMP with hypokalemia to 3.2 -K-eff 50 meq PO once -BMP, CBC in AM -Psychiatry consult (4) Alzheimer disease ICD Codes: G30.9 - Alzheimer's disease, unspecified; F02.80 - Dementia in other diseases classified elsewhere without behavioral disturbance Status: Chronic Plan: Plan as above (5) Delirium due to another medical condition ICD Codes: F05 - Delirium due to known physiological condition Plan: Continue pt's home medications -Seroquel 100mg BID -Paxil 20mg daily (6) Anxiety ICD Codes: F41.9 - Anxiety disorder, unspecified Plan: Per pt's daughter, she was concerned that we continue pt's home med: -Ativan 0.5mg q4h PRN (7) FEN/GI/PPx Plan: Fluids: PO only Electrolytes: hypokalemia as above; BMP to monitor Nutrition: regular basic diet -Nursing order to feed as pt cannot feed herself GI: none indicated PPx: Lovenox 40mg SQ daily Tylenol 650mg PO q4h temp >100.4 Continue pt's home meds: -Compazine 10mg PO q6h PRN nausea/vomiting -Senokot 8.6mg PO qhs (Pascual Cronin MD R2) Problem Qualifiers (1) Suicidal behavior: Qualified Codes: T14.91XA - Suicide attempt, initial encounter (2) UTI (urinary tract infection): Qualified Codes: N30.00 - Acute cystitis without hematuria (3) Altered mental status, unspecified: Qualified Codes: R41.82 - Altered mental status, unspecified (4) Alzheimer disease: Qualified Codes: G30.1 - Alzheimer's disease with late onset; F02.81 - Dementia in other diseases classified elsewhere with behavioral disturbance Pascual Cronin MD R2 Jan 28, 2018 08:38 Yessy Larios MD Jan 28, 2018 10:40
[2018-01-28 08:39] VITALS: BP 133/64; PULSE 55; RESP 16; TEMP 97.6; O2SAT 96
[2018-01-28] MEDS: SODIUM CHLORIDE 0.9% FLUSH 10 ML FLUSH IV FLUSH SCH ×2 (09:00→23:23)
[2018-01-28] MEDS: QUEtiapine FUMARATE 100 MG TAB PO SCH ×2 (09:55→23:23)
[2018-01-28] MEDS: PARoxetine HCL SUSP 20 MG/10 ML UDC PO SCH (09:56)
[2018-01-28 11:28] VITALS: BP 112/67; PULSE 76; RESP 16; TEMP 97.6; O2SAT 95
[2018-01-28] MEDS ORDERED: AMOXTAB PO (11:56)
[2018-01-28] MEDS: SODIUM CHLOR 0.9% 1000 ML INJ 1,000 ML IV SCH (13:30)
[2018-01-28] MEDS: AMPICILLIN-SULBACTAM INJ 3 GM in SODIUM CHLORIDE 0.9% INJ 100 ML IV SCH ×2 (14:31→18:47)
[2018-01-28 16:18] VITALS: BP 114/69; PULSE 74; RESP 20; TEMP 97.9; O2SAT 96
[2018-01-28 20:17] VITALS: BP 121/66; PULSE 64; RESP 16; TEMP 98.2; O2SAT 96
[2018-01-28 22:48] VITALS: BP 111/73; PULSE 75; RESP 16; TEMP 98.5; O2SAT 95
[2018-01-28] MEDS: ENOXAPARIN SODIUM 40 MG/0.4 ML SYRINGE SQ SCH (23:23)
[2018-01-28] MEDS: LORazepam 0.5 MG TAB PO PRN (23:23)
[2018-01-28] MEDS: SENNOSIDES 8.6 MG TAB PO SCH (23:23)
[2018-01-29] MEDS: AMPICILLIN-SULBACTAM INJ 3 GM in SODIUM CHLORIDE 0.9% INJ 100 ML IV SCH ×2 (01:09→06:18)
[2018-01-29 04:26] VITALS: BP 119/92; PULSE 58; RESP 16; TEMP 96.7; O2SAT 94
[2018-01-29] MEDS: SODIUM CHLOR 0.9% 1000 ML INJ 1,000 ML IV SCH (06:18)
[2018-01-29 07:46] VITALS: O2SAT 96
[2018-01-29 08:14] VITALS: BP 140/79; PULSE 58; RESP 18; TEMP 98.7; O2SAT 96
--- NOTE | 2018-01-29 09:34 | HHI.FPPN ---
Subjective Remarks No acute events overnight. Patient is stable. Objective Vitals Vital Signs Date Time Temp Pulse Resp B/P (MAP) Pulse Ox O2 Delivery O2 Flow Rate FiO2 01/29/18 08:14 98.7 58 18 140/79 (99) 96 01/29/18 07:46 96 21 01/29/18 04:26 96.7 58 16 119/92 (101) 94 01/28/18 22:48 98.5 75 16 111/73 (86) 95 01/28/18 20:17 98.2 64 16 121/66 (84) 96 01/28/18 16:18 97.9 74 20 114/69 (84) 96 01/28/18 11:28 97.6 76 16 112/67 (82) 95 I/O 01/28/18 01/28/18 01/28/18 01/29/18 01/29/18 01/29/18 07:00 15:00 23:00 07:00 15:00 23:00 Intake Total 100 ml Balance 100 ml IV Total 100 ml Result Diagram: 01/27/18 04001/27/18 0404 Objective Remarks CONSTITUTIONAL/GEN: normally nourished, in NAD. sleeping, refuses to rouse. LUNGS: clear A-P, respiratory effort is normal. CARDIOVASCULAR: RR without murmur or gallop. No significant edema. NEURO/PSYCH: No focal deficits. SKIN: color normal, no rashes noted. MUSC: No peripheral cyanosis or edema A/P Assessment and Plan 67 YO female with dementia presenting with: Discharge Planning Discharge back to a facility as soon as it can be arranged. Spoke to daughter today who wanted an update. States she was told patient was to be admitted to the hospital and was worried about placement. States patient requires 24 hr care that family is unable to provide. Wanted clarification. I told her that I would speak to case management and make sure to have her updated. It seems that it placement has not been found yet and that CM left a voicemail on son's phone to discuss possible d/c to home until placement can be found. Problem List: (1) UTI (urinary tract infection) ICD Codes: N39.0 - Urinary tract infection, site not specified Plan: Pt with recurrent UTIs with UA positive nitrites and leuko esterase; urine cx positive for ESBL E.coli Resistant to Rocephin (had 2 doses) -IV Unasyn started yesterday. On day 2 of treatment - Contact precautions (2) Alzheimer disease ICD Codes: G30.9 - Alzheimer's disease, unspecified; F02.80 - Dementia in other diseases classified elsewhere without behavioral disturbance Status: Chronic Plan: Plan as above (3) Delirium due to another medical condition ICD Codes: F05 - Delirium due to known physiological condition Plan: Continue pt's home medications -Seroquel 100mg BID -Paxil 20mg daily (4) Anxiety ICD Codes: F41.9 - Anxiety disorder, unspecified Plan: Per pt's daughter, she was concerned that we continue pt's home med: -Ativan 0.5mg q4h PRN (5) FEN/GI/PPx Plan: Fluids: PO only Electrolytes: none Nutrition: regular basic diet -Nursing order to feed as pt cannot feed herself GI: none indicated PPx: Lovenox 40mg SQ daily Tylenol 650mg PO q4h temp >100.4 Continue pt's home meds: -Compazine 10mg PO q6h PRN nausea/vomiting -Senokot 8.6mg PO qhs Problem Qualifiers (1) UTI (urinary tract infection): Qualified Codes: N30.00 - Acute cystitis without hematuria (2) Alzheimer disease: Qualified Codes: G30.1 - Alzheimer's disease with late onset; F02.81 - Dementia in other diseases classified elsewhere with behavioral disturbance Zully Parada MD R1 Jan 29, 2018 09:34
[2018-01-29] MEDS: SODIUM CHLORIDE 0.9% FLUSH 10 ML FLUSH IV FLUSH SCH ×2 (10:20→21:45)
[2018-01-29] MEDS: PARoxetine HCL SUSP 20 MG/10 ML UDC PO SCH (10:20)
[2018-01-29] MEDS: QUEtiapine FUMARATE 100 MG TAB PO SCH ×2 (10:20→21:45)
[2018-01-29 13:27] VITALS: BP 121/74; PULSE 88; RESP 18; TEMP 98.7; O2SAT 100
[2018-01-29 17:07] VITALS: BP 107/68; PULSE 72; RESP 18; TEMP 98; O2SAT 95
[2018-01-29 19:31] VITALS: BP 127/80; PULSE 59; RESP 16; TEMP 98.4; O2SAT 96
[2018-01-29] MEDS: ENOXAPARIN SODIUM 40 MG/0.4 ML SYRINGE SQ SCH (21:45)
[2018-01-29] MEDS: AMOXICILLIN/CLAVULANATE K 500 MG TAB PO SCH (21:45)
[2018-01-29] MEDS: SENNOSIDES 8.6 MG TAB PO SCH (21:45)
[2018-01-30] VITALS (7 sets, daily range): BP systolic 96–144; BP diastolic 56–82; PULSE 56–94; RESP 16–18; TEMP 97.6–98.7; O2SAT 74–98
[2018-01-30] MEDS: SODIUM CHLOR 0.9% 1000 ML INJ 1,000 ML IV SCH (05:30)
--- NOTE | 2018-01-30 08:10 | HHI.FPPN ---
Objective Vitals Vital Signs Date Time Temp Pulse Resp B/P (MAP) Pulse Ox O2 Delivery O2 Flow Rate FiO2 01/30/18 07:40 98.7 57 18 144/82 (102) 97 01/30/18 04:01 97.9 56 16 107/69 (82) 95 01/30/18 00:15 97.6 94 16 118/56 (76) 96 01/29/18 19:31 98.4 59 16 127/80 (96) 96 01/29/18 17:07 98.0 72 18 107/68 (81) 95 01/29/18 13:27 98.7 88 18 121/74 (90) 100 01/29/18 08:14 98.7 58 18 140/79 (99) 96 I/O 01/29/18 01/29/18 01/29/18 01/30/18 01/30/18 01/30/18 07:00 15:00 23:00 07:00 15:00 23:00 Intake Total 403 ml 341 ml 240 ml Balance 403 ml 341 ml 240 ml Intake Oral 253 ml 240 ml IV Total 150 ml 341 ml # Voids 1 Result Diagram: 01/27/18 0404 01/27/18 0404 Objective Remarks CONSTITUTIONAL/GEN: normally nourished, in NAD. sleeping, refuses to rouse. LUNGS: clear A-P, respiratory effort is normal. CARDIOVASCULAR: RR without murmur or gallop. No significant edema. NEURO/PSYCH: No focal deficits. SKIN: color normal, no rashes noted. MUSC: No peripheral cyanosis or edema A/P Assessment and Plan 67 YO female with dementia presenting with: Discharge Planning Discharge back to a facility as soon as it can be arranged. Spoke to daughter today who wanted an update. States she was told patient was to be admitted to the hospital and was worried about placement. States patient requires 24 hr care that family is unable to provide. Wanted clarification. I told her that I would speak to case management and make sure to have her updated. It seems that it placement has not been found yet and that CM left a voicemail on son's phone to discuss possible d/c to home until placement can be found. Problem List: (1) UTI (urinary tract infection) ICD Codes: N39.0 - Urinary tract infection, site not specified Plan: Pt with recurrent UTIs with UA positive nitrites and leuko esterase; urine cx positive for ESBL E.coli Resistant to Rocephin (had 2 doses) -IV Unasyn started yesterday. On day 2 of treatment - Contact precautions (2) Alzheimer disease ICD Codes: G30.9 - Alzheimer's disease, unspecified; F02.80 - Dementia in other diseases classified elsewhere without behavioral disturbance Status: Chronic Plan: Plan as above (3) Delirium due to another medical condition ICD Codes: F05 - Delirium due to known physiological condition Status: Resolved Plan: Continue pt's home medications -Seroquel 100mg BID -Paxil 20mg daily (4) Anxiety ICD Codes: F41.9 - Anxiety disorder, unspecified Plan: Per pt's daughter, she was concerned that we continue pt's home med: -Ativan 0.5mg q4h PRN (5) FEN/GI/PPx Plan: Fluids: PO only Electrolytes: none Nutrition: regular basic diet -Nursing order to feed as pt cannot feed herself GI: none indicated PPx: Lovenox 40mg SQ daily Tylenol 650mg PO q4h temp >100.4 Continue pt's home meds: -Compazine 10mg PO q6h PRN nausea/vomiting -Senokot 8.6mg PO qhs Problem Qualifiers (1) UTI (urinary tract infection): Qualified Codes: N30.00 - Acute cystitis without hematuria (2) Alzheimer disease: Qualified Codes: G30.1 - Alzheimer's disease with late onset; F02.81 - Dementia in other diseases classified elsewhere with behavioral disturbance Zully Parada MD R1 Jan 30, 2018 08:10
[2018-01-30] MEDS: SODIUM CHLORIDE 0.9% FLUSH 10 ML FLUSH IV FLUSH SCH ×2 (09:42→20:37)
[2018-01-30] MEDS: AMOXICILLIN/CLAVULANATE K 500 MG TAB PO SCH (09:42)
[2018-01-30] MEDS: PARoxetine HCL SUSP 20 MG/10 ML UDC PO SCH (09:42)
[2018-01-30] MEDS: QUEtiapine FUMARATE 100 MG TAB PO SCH ×2 (09:42→20:38)
[2018-01-30] MEDS ORDERED: AMOX875T2 PO (10:44)
--- NOTE | 2018-01-30 10:45 | HHI.FPPN ---
Subjective Remarks 67 yo female with dementia admitted for self-destructive behavior found to have UTI due to ESBL E coli. Today being seen for follow up. Has been discharged but is awaiting placement. Demented and intermittently verbal, but states she feels well. Daughter at bedside notes no concerns. Objective Vitals Vital Signs Date Time Temp Pulse Resp B/P (MAP) Pulse Ox O2 Delivery O2 Flow Rate FiO2 01/30/18 07:40 98.7 57 18 144/82 (102) 97 01/30/18 04:01 97.9 56 16 107/69 (82) 95 01/30/18 00:15 97.6 94 16 118/56 (76) 96 01/29/18 19:31 98.4 59 16 127/80 (96) 96 01/29/18 17:07 98.0 72 18 107/68 (81) 95 01/29/18 13:27 98.7 88 18 121/74 (90) 100 I/O 01/29/18 01/29/18 01/29/18 01/30/18 01/30/18 01/30/18 07:00 15:00 23:00 07:00 15:00 23:00 Intake Total 403 ml 341 ml 240 ml Balance 403 ml 341 ml 240 ml Intake Oral 253 ml 240 ml IV Total 150 ml 341 ml # Voids 1 Result Diagram: 01/27/18 0404 01/27/18 0404 Imaging Last Impressions Chest X-Ray 01/26/182056 Signed Impressions: CONCLUSION: Negative examination. Head CT 01/26/181718 Signed Impressions: CONCLUSION: 1. Negative CT Head non contrast. Objective Remarks CONSTITUTIONAL/GEN: normally nourished, sitting up in bed, NAD. LUNGS: clear A-P, respiratory effort is normal. CARDIOVASCULAR: NRRR without murmur or gallop. No significant edema. NEURO/PSYCH: Awake and alert. Oriented to person only. No focal deficits. SKIN: color normal, no rashes noted. Lymphedema changes to skin of BLE without actual edema. MUSC: No peripheral cyanosis or edema Medications and IVs Current Medications Medications (Trade) Dose Ordered Sig/Tomas Route Start Time Stop Time Status Last Admin (Paxil Liq) 20 mg DAILY PO 01/27/18 09:00 01/30/18 09:42 (Compazine) 10 mg Q6H PRN PO 01/26/18 21:00 (Senokot) 8.6 mg HS PO 01/26/18 21:00 01/29/18 21:45 (NS Flush) 2 ml UNSCH PRN IV FLUSH 01/26/18 21:00 (NS Flush) 2 ml BID IV FLUSH 01/26/18 21:00 01/30/18 09:42 (Tylenol) 650 mg Q4H PRN PO 01/26/18 21:00 (Lovenox Inj) 40 mg Q24H SQ 01/26/18 21:00 01/29/18 21:45 (Narcan Inj) 0.4 mg UNSCH PRN IV PUSH 01/26/18 21:00 (SEROquel) 100 mg BID PO 01/27/18 09:00 01/30/18 09:42 (Ativan) 0.5 mg Q4H PRN PO 01/26/18 21:30 01/28/18 23:23 Sodium Chloride 1,000 ml @ 50 mls/hr Q20H IV 01/26/18 21:30 01/29/18 06:18 (Augmentin) 500 mg Q12HR PO 01/29/18 21:00 01/30/18 09:42 A/P Assessment and Plan 67 YO female with dementia presenting with: Problem List: (1) UTI (urinary tract infection) ICD Codes: N39.0 - Urinary tract infection, site not specified Plan: Pt with recurrent UTIs with UA positive nitrites and leuko esterase; urine cx positive for ESBL E.coli -Continue Augmentin to complete 14 days - Contact precautions (2) Alzheimer disease ICD Codes: G30.9 - Alzheimer's disease, unspecified; F02.80 - Dementia in other diseases classified elsewhere without behavioral disturbance Status: Chronic Plan: Plan as above (3) Delirium due to another medical condition ICD Codes: F05 - Delirium due to known physiological condition Status: Resolved Plan: Continue pt's home medications -Seroquel 100mg BID -Paxil 20mg daily (4) Anxiety ICD Codes: F41.9 - Anxiety disorder, unspecified Plan: Per pt's daughter, she was concerned that we continue pt's home med: -Ativan 0.5mg q4h PRN (5) FEN/GI/PPx Plan: Fluids: PO only Electrolytes: none Nutrition: regular basic diet -Nursing order to feed as pt cannot feed herself GI: none indicated PPx: Lovenox 40mg SQ daily Tylenol 650mg PO q4h temp >100.4 Continue pt's home meds: -Compazine 10mg PO q6h PRN nausea/vomiting -Senokot 8.6mg PO qhs Dispo: Discharge back to a memory care facility. Placement pending. Spoke with hospice nurse who is still working on the case. Daughter aware. Problem Qualifiers (1) UTI (urinary tract infection): Qualified Codes: N30.00 - Acute cystitis without hematuria (2) Alzheimer disease: Qualified Codes: G30.1 - Alzheimer's disease with late onset; F02.81 - Dementia in other diseases classified elsewhere with behavioral disturbance Pascual Cronin MD R2 Jan 30, 2018 10:45 am
[2018-01-30] MEDS: LACTOBACILLUS ACIDOPHILUS 1 GM PACKET PO SCH ×2 (13:51→18:20)
[2018-01-30] MEDS: AMOXICILLIN/CLAVULANATE K 875 MG TAB PO SCH (20:38)
[2018-01-30] MEDS: SENNOSIDES 8.6 MG TAB PO SCH (20:38)
[2018-01-30] MEDS: ENOXAPARIN SODIUM 40 MG/0.4 ML SYRINGE SQ SCH (20:39)
[2018-01-31] MEDS: SODIUM CHLOR 0.9% 1000 ML INJ 1,000 ML IV SCH (01:30)
[2018-01-31 04:29] VITALS: BP 133/83; PULSE 56; RESP 17; TEMP 98.4; O2SAT 95
[2018-01-31 08:00] VITALS: BP 138/78; PULSE 55; PULSE 57; RESP 18; TEMP 97.4; O2SAT 97
[2018-01-31] MEDS: SODIUM CHLORIDE 0.9% FLUSH 10 ML FLUSH IV FLUSH SCH ×2 (09:00→21:00)
[2018-01-31] MEDS: AMOXICILLIN/CLAVULANATE K 875 MG TAB PO SCH ×2 (09:49→21:51)
[2018-01-31] MEDS: PARoxetine HCL SUSP 20 MG/10 ML UDC PO SCH (09:49)
[2018-01-31] MEDS: QUEtiapine FUMARATE 100 MG TAB PO SCH ×2 (09:50→21:52)
[2018-01-31] MEDS: LACTOBACILLUS ACIDOPHILUS 1 GM PACKET PO SCH ×3 (09:50→18:18)
--- NOTE | 2018-01-31 12:06 | HHI.FPPN ---
Subjective Remarks Patient is stable. No acute events overnight. Doing well. Objective Vitals Vital Signs Date Time Temp Pulse Resp B/P (MAP) Pulse Ox O2 Delivery O2 Flow Rate FiO2 01/31/18 08:00 97.4 55 18 138/78 (98) 97 01/31/18 08:00 97.4 57 138/78 (98) 01/31/18 04:29 98.4 56 17 133/83 (100) 95 01/30/18 23:43 98.2 61 17 96/56 (69) 98 01/30/18 19:48 98.2 80 17 112/76 (88) 98 01/30/18 15:59 98.7 61 18 129/62 (84) 74 I/O 01/30/18 01/30/18 01/30/18 01/31/18 01/31/18 01/31/18 07:00 15:00 23:00 07:00 15:00 23:00 Intake Total 240 ml 1002 ml Balance 240 ml 1002 ml Intake Oral 240 ml IV Total 1002 ml # Voids 1 2 1 Result Diagram: 01/27/18 0404 01/27/18 0404 Objective Remarks CONSTITUTIONAL/GEN: normally nourished, sitting up in bed eating breakfast. No distress. LUNGS: respiratory effort is normal. CARDIOVASCULAR: Normal heart rate. NEURO/PSYCH: Awake and alert. Oriented to person only. No focal deficits. SKIN: color normal, no rashes noted. Lymphedema changes to skin of BLE without actual edema. MUSC: No peripheral cyanosis or edema A/P Assessment and Plan 67 YO female with dementia presenting with: Discharge Planning Medically cleared for discharge. Appreciate case management assistance in discharge planning and placement. Problem List: (1) UTI (urinary tract infection) ICD Codes: N39.0 - Urinary tract infection, site not specified Plan: Pt with recurrent UTIs with UA positive nitrites and leuko esterase; urine cx positive for ESBL E.coli -Continue Augmentin to complete 14 days - Contact precautions (2) Alzheimer disease ICD Codes: G30.9 - Alzheimer's disease, unspecified; F02.80 - Dementia in other diseases classified elsewhere without behavioral disturbance Status: Chronic Plan: Plan as above (3) Delirium due to another medical condition ICD Codes: F05 - Delirium due to known physiological condition Status: Resolved Plan: Continue pt's home medications -Seroquel 100mg BID -Paxil 20mg daily (4) Anxiety ICD Codes: F41.9 - Anxiety disorder, unspecified Plan: -Ativan 0.5mg q4h PRN (5) FEN/GI/PPx Plan: Fluids: PO only Electrolytes: none Nutrition: regular basic diet -Nursing order to feed as pt cannot feed herself GI: none indicated PPx: Lovenox 40mg SQ daily Tylenol 650mg PO q4h temp >100.4 Continue pt's home meds: -Compazine 10mg PO q6h PRN nausea/vomiting -Senokot 8.6mg PO qhs Problem Qualifiers (1) UTI (urinary tract infection): Qualified Codes: N30.00 - Acute cystitis without hematuria (2) Alzheimer disease: Qualified Codes: G30.1 - Alzheimer's disease with late onset; F02.81 - Dementia in other diseases classified elsewhere with behavioral disturbance Zully Parada MD R1 Jan 31, 2018 12:06
[2018-01-31 12:27] VITALS: BP 111/67; PULSE 69; RESP 18; TEMP 98; O2SAT 94
[2018-01-31 16:13] VITALS: BP 108/63; PULSE 83; RESP 16; TEMP 97.9; O2SAT 97
[2018-01-31 19:43] VITALS: BP 119/64; PULSE 97; RESP 16; TEMP 98.2; O2SAT 96
[2018-01-31] MEDS: ENOXAPARIN SODIUM 40 MG/0.4 ML SYRINGE SQ SCH (21:00)
[2018-01-31] MEDS: SENNOSIDES 8.6 MG TAB PO SCH (21:51)
[2018-02-01] VITALS (7 sets, daily range): BP systolic 98–125; BP diastolic 56–78; PULSE 57–83; RESP 16–17; TEMP 97.2–98.4; O2SAT 93–98
[2018-02-01] MEDS: SODIUM CHLORIDE 0.9% FLUSH 10 ML FLUSH IV FLUSH SCH ×2 (08:09→20:35)
[2018-02-01] MEDS: PARoxetine HCL SUSP 20 MG/10 ML UDC PO SCH (09:17)
[2018-02-01] MEDS: QUEtiapine FUMARATE 100 MG TAB PO SCH ×2 (09:18→20:35)
[2018-02-01] MEDS: LACTOBACILLUS ACIDOPHILUS 1 GM PACKET PO SCH ×3 (09:18→17:59)
[2018-02-01] MEDS: SODIUM CHLOR 0.9% 1000 ML INJ 1,000 ML IV SCH ×2 (09:18→17:30)
[2018-02-01] MEDS: AMOXICILLIN/CLAVULANATE K 875 MG TAB PO SCH ×2 (09:18→20:35)
--- NOTE | 2018-02-01 10:25 | HHI.FPPN ---
Subjective Remarks 67 yo female with dementia admitted for reported suicide attempt which likely was just altered mental status due to UTI (ESBL E coli). She has been medically cleared for discharge but is awaiting placement. Objective Vitals Vital Signs Date Time Temp Pulse Resp B/P (MAP) Pulse Ox O2 Delivery O2 Flow Rate FiO2 02/01/18 07:44 97.8 67 16 101/75 (84) 95 02/01/18 04:42 98.4 83 16 116/73 (87) 94 02/01/18 00:21 72 16 100/57 (71) 97 01/31/18 19:43 98.2 97 16 119/64 (82) 96 01/31/18 16:13 97.9 83 16 108/63 (78) 97 01/31/18 12:27 98.0 69 18 111/67 (82) 94 I/O 01/31/18 01/31/18 01/31/18 02/01/18 02/01/18 02/01/18 07:00 15:00 23:00 07:00 15:00 23:00 Intake Total 1000 ml Balance 1000 ml IV Total 1000 ml # Voids 1 1 1 Objective Remarks CONSTITUTIONAL/GEN: normally nourished, lying in bed. No distress. LUNGS: respiratory effort is normal. CARDIOVASCULAR: Normal heart rate. NEURO/PSYCH: Asleep initially but awakens to alert on light touch. Oriented to person only. No focal deficits. SKIN: color normal, no rashes noted. Lymphedema changes to skin of BLE without actual edema. MUSC: No peripheral cyanosis or edema Medications and IVs Current Medications Medications (Trade) Dose Ordered Sig/Tomas Route Start Time Stop Time Status Last Admin (Paxil Liq) 20 mg DAILY PO 01/27/18 09:00 02/01/18 09:17 (Compazine) 10 mg Q6H PRN PO 01/26/18 21:00 (Senokot) 8.6 mg HS PO 01/26/18 21:00 01/31/18 21:51 (NS Flush) 2 ml UNSCH PRN IV FLUSH 01/26/18 21:00 (NS Flush) 2 ml BID IV FLUSH 01/26/18 21:00 01/30/18 09:42 (Tylenol) 650 mg Q4H PRN PO 01/26/18 21:00 (Lovenox Inj) 40 mg Q24H SQ 01/26/18 21:00 01/30/18 20:39 (Narcan Inj) 0.4 mg UNSCH PRN IV PUSH 01/26/18 21:00 (SEROquel) 100 mg BID PO 01/27/18 09:00 02/01/18 09:18 (Ativan) 0.5 mg Q4H PRN PO 01/26/18 21:30 01/28/18 23:23 Sodium Chloride 1,000 ml @ 50 mls/hr Q20H IV 01/26/18 21:30 02/01/18 09:18 (Lactinex Pkt) 1 gm TID PO 01/30/18 13:00 02/01/18 09:18 (Augmentin) 875 mg Q12HR PO 01/30/18 21:00 02/01/18 09:18 A/P Assessment and Plan 67 YO female with dementia presenting with: Discharge Planning Medically cleared for discharge. Appreciate case management assistance in discharge planning and placement. Problem List: (1) UTI (urinary tract infection) ICD Codes: N39.0 - Urinary tract infection, site not specified Plan: Pt with recurrent UTIs with UA positive nitrites and leuko esterase; urine cx positive for ESBL E.coli -Continue Augmentin to complete 14 days - Contact precautions (2) Alzheimer disease ICD Codes: G30.9 - Alzheimer's disease, unspecified; F02.80 - Dementia in other diseases classified elsewhere without behavioral disturbance Status: Chronic Plan: Stable with no current behavioral disturbance. -Await placement; case management and hospice actively working to arrange (3) Anxiety ICD Codes: F41.9 - Anxiety disorder, unspecified Plan: -Ativan 0.5mg q4h PRN (4) FEN/GI/PPx Plan: Fluids: PO only Electrolytes: none Nutrition: regular basic diet -Nursing order to feed as pt cannot feed herself GI: none indicated PPx: Lovenox 40mg SQ daily Tylenol 650mg PO q4h temp >100.4 Continue pt's home meds: -Compazine 10mg PO q6h PRN nausea/vomiting -Senokot 8.6mg PO qhs -Seroquel 100mg BID -Paxil 20mg daily Problem Qualifiers (1) UTI (urinary tract infection): Qualified Codes: N30.00 - Acute cystitis without hematuria (2) Alzheimer disease: Qualified Codes: G30.1 - Alzheimer's disease with late onset; F02.81 - Dementia in other diseases classified elsewhere with behavioral disturbance Pascual Cronin MD R2 Feb 01, 2018 10:25 am
[2018-02-01] MEDS: SENNOSIDES 8.6 MG TAB PO SCH (20:35)
[2018-02-01] MEDS: ENOXAPARIN SODIUM 40 MG/0.4 ML SYRINGE SQ SCH (20:35)
[2018-02-01] MEDS: LORazepam 0.5 MG TAB PO PRN (22:03)
[2018-02-02 03:49] VITALS: BP 101/61; PULSE 56; RESP 17; TEMP 98.4; O2SAT 97
--- NOTE | 2018-02-02 08:19 | HHI.FPPN ---
Objective Vitals Vital Signs Date Time Temp Pulse Resp B/P (MAP) Pulse Ox O2 Delivery O2 Flow Rate FiO2 02/02/18 03:49 98.4 56 17 101/61 (74) 97 02/01/18 23:45 97.9 71 17 98/63 (75) 94 02/01/18 21:59 98.1 71 16 111/56 (74) 94 02/01/18 16:56 98.1 64 16 125/78 (94) 98 02/01/18 11:37 97.2 57 16 99/69 (79) 93 I/O 02/01/18 02/01/18 02/01/18 02/02/18 02/02/18 02/02/18 07:00 15:00 23:00 07:00 15:00 23:00 Intake Total 1000 ml Balance 1000 ml IV Total 1000 ml # Voids 1 Objective Remarks CONSTITUTIONAL/GEN: normally nourished, lying in bed. No distress. LUNGS: respiratory effort is normal. CARDIOVASCULAR: Normal heart rate. NEURO/PSYCH: Asleep initially but awakens to alert on light touch. Oriented to person only. No focal deficits. SKIN: color normal, no rashes noted. Lymphedema changes to skin of BLE without actual edema. MUSC: No peripheral cyanosis or edema A/P Assessment and Plan 67 YO female with dementia presenting with: Discharge Planning Medically cleared for discharge. Appreciate case management assistance in discharge planning and placement. Problem List: (1) UTI (urinary tract infection) ICD Codes: N39.0 - Urinary tract infection, site not specified Plan: Pt with recurrent UTIs with UA positive nitrites and leuko esterase; urine cx positive for ESBL E.coli -Continue Augmentin to complete 14 days - Contact precautions (2) Alzheimer disease ICD Codes: G30.9 - Alzheimer's disease, unspecified; F02.80 - Dementia in other diseases classified elsewhere without behavioral disturbance Status: Chronic Plan: Stable with no current behavioral disturbance. -Await placement; case management and hospice actively working to arrange (3) Anxiety ICD Codes: F41.9 - Anxiety disorder, unspecified Plan: -Ativan 0.5mg q4h PRN (4) FEN/GI/PPx Plan: Fluids: PO only Electrolytes: none Nutrition: regular basic diet -Nursing order to feed as pt cannot feed herself GI: none indicated PPx: Lovenox 40mg SQ daily Tylenol 650mg PO q4h temp >100.4 Continue pt's home meds: -Compazine 10mg PO q6h PRN nausea/vomiting -Senokot 8.6mg PO qhs -Seroquel 100mg BID -Paxil 20mg daily Problem Qualifiers (1) UTI (urinary tract infection): Qualified Codes: N30.00 - Acute cystitis without hematuria (2) Alzheimer disease: Qualified Codes: G30.1 - Alzheimer's disease with late onset; F02.81 - Dementia in other diseases classified elsewhere with behavioral disturbance Zully Parada MD R1 Feb 02, 2018 08:19
[2018-02-02 08:33] VITALS: BP 112/61; PULSE 55; RESP 18; TEMP 97.4; O2SAT 94
[2018-02-02] MEDS: SODIUM CHLORIDE 0.9% FLUSH 10 ML FLUSH IV FLUSH SCH ×2 (09:00→22:04)
[2018-02-02] MEDS: QUEtiapine FUMARATE 100 MG TAB PO SCH ×2 (09:46→22:04)
[2018-02-02] MEDS: LACTOBACILLUS ACIDOPHILUS 1 GM PACKET PO SCH ×3 (09:46→18:16)
[2018-02-02] MEDS: AMOXICILLIN/CLAVULANATE K 875 MG TAB PO SCH ×2 (09:46→22:04)
[2018-02-02] MEDS: PARoxetine HCL SUSP 20 MG/10 ML UDC PO SCH (09:46)
--- NOTE | 2018-02-02 10:02 | HHI.FPPN ---
Subjective Remarks No new events. Objective Vitals Vital Signs Date Time Temp Pulse Resp B/P (MAP) Pulse Ox O2 Delivery O2 Flow Rate FiO2 02/02/18 08:33 97.4 55 18 112/61 (78) 94 02/02/18 03:49 98.4 56 17 101/61 (74) 97 02/01/18 23:45 97.9 71 17 98/63 (75) 94 02/01/18 21:59 98.1 71 16 111/56 (74) 94 02/01/18 16:56 98.1 64 16 125/78 (94) 98 02/01/18 11:37 97.2 57 16 99/69 (79) 93 I/O 02/01/18 02/01/18 02/01/18 02/02/18 02/02/18 02/02/18 07:00 15:00 23:00 07:00 15:00 23:00 Intake Total 1000 ml Balance 1000 ml IV Total 1000 ml # Voids 1 Objective Remarks CONSTITUTIONAL/GEN: normally nourished, lying in bed. No distress. LUNGS: respiratory effort is normal. CARDIOVASCULAR: Normal heart rate. MUSC: No peripheral cyanosis or edema A/P Assessment and Plan 67 YO female with dementia presenting with: Discharge Planning Medically cleared for discharge. Appreciate case management assistance in discharge planning and placement. Problem List: (1) UTI (urinary tract infection) ICD Codes: N39.0 - Urinary tract infection, site not specified Plan: Pt with recurrent UTIs with UA positive nitrites and leuko esterase; urine cx positive for ESBL E.coli -Continue Augmentin (Day #4) to complete 14 days - Contact precautions (2) Alzheimer disease ICD Codes: G30.9 - Alzheimer's disease, unspecified; F02.80 - Dementia in other diseases classified elsewhere without behavioral disturbance Status: Chronic Plan: Stable with no current behavioral disturbance. -Await placement; case management and hospice actively working to arrange (3) Anxiety ICD Codes: F41.9 - Anxiety disorder, unspecified Plan: -Ativan 0.5mg q4h PRN (4) FEN/GI/PPx Plan: Fluids: PO only Electrolytes: none Nutrition: regular basic diet -Nursing order to feed as pt cannot feed herself GI: none indicated PPx: Lovenox 40mg SQ daily Tylenol 650mg PO q4h temp >100.4 Continue pt's home meds: -Compazine 10mg PO q6h PRN nausea/vomiting -Senokot 8.6mg PO qhs -Seroquel 100mg BID -Paxil 20mg daily Problem Qualifiers (1) UTI (urinary tract infection): Qualified Codes: N30.00 - Acute cystitis without hematuria (2) Alzheimer disease: Qualified Codes: G30.1 - Alzheimer's disease with late onset; F02.81 - Dementia in other diseases classified elsewhere with behavioral disturbance Zully Parada MD R1 Feb 02, 2018 10:01
[2018-02-02] MEDS: SENNOSIDES 8.6 MG TAB PO SCH (22:04)
[2018-02-02] MEDS: ENOXAPARIN SODIUM 40 MG/0.4 ML SYRINGE SQ SCH (22:05)
--- NOTE | 2018-02-03 08:46 | HHI.FPPN ---
Subjective Remarks Vitals stable. No problems overnight. Objective Vitals I/O 02/02/18 02/02/18 02/02/18 02/03/18 02/03/18 02/03/18 07:00 15:00 23:00 07:00 15:00 23:00 Intake Total 500 ml 240 ml Balance 500 ml 240 ml Intake Oral 240 ml IV Total 500 ml # Voids 2 3 # Bowel Movements 1 1 Objective Remarks CONSTITUTIONAL/GEN: normally nourished, lying in bed. No distress. LUNGS: respiratory effort is normal. CARDIOVASCULAR: Normal heart rate. MUSC: No peripheral cyanosis or edema A/P Assessment and Plan 67 YO female with dementia presenting with: Discharge Planning Medically cleared for discharge. Appreciate case management assistance in discharge planning and placement. Problem List: (1) UTI (urinary tract infection) ICD Codes: N39.0 - Urinary tract infection, site not specified Plan: Pt with recurrent UTIs with UA positive nitrites and leuko esterase; urine cx positive for ESBL E.coli -Continue Augmentin (Day #5) to complete 14 days - Contact precautions (2) Alzheimer disease ICD Codes: G30.9 - Alzheimer's disease, unspecified; F02.80 - Dementia in other diseases classified elsewhere without behavioral disturbance Status: Chronic Plan: Stable with no current behavioral disturbance. -Await placement; case management and hospice actively working to arrange (3) Anxiety ICD Codes: F41.9 - Anxiety disorder, unspecified Plan: -Ativan 0.5mg q4h PRN (4) FEN/GI/PPx Plan: Fluids: PO only Electrolytes: none Nutrition: regular basic diet -Nursing order to feed as pt cannot feed herself GI: none indicated PPx: Lovenox 40mg SQ daily Tylenol 650mg PO q4h temp >100.4 Continue pt's home meds: -Compazine 10mg PO q6h PRN nausea/vomiting -Senokot 8.6mg PO qhs -Seroquel 100mg BID -Paxil 20mg daily Problem Qualifiers (1) UTI (urinary tract infection): Qualified Codes: N30.00 - Acute cystitis without hematuria (2) Alzheimer disease: Qualified Codes: G30.1 - Alzheimer's disease with late onset; F02.81 - Dementia in other diseases classified elsewhere with behavioral disturbance Zully Parada MD R1 Feb 03, 2018 08:46
[2018-02-03] MEDS: SODIUM CHLORIDE 0.9% FLUSH 10 ML FLUSH IV FLUSH SCH ×2 (09:20→21:23)
[2018-02-03] MEDS: AMOXICILLIN/CLAVULANATE K 875 MG TAB PO SCH ×2 (09:27→21:23)
[2018-02-03] MEDS: QUEtiapine FUMARATE 100 MG TAB PO SCH ×2 (09:27→21:23)
[2018-02-03] MEDS: PARoxetine HCL SUSP 20 MG/10 ML UDC PO SCH (09:27)
[2018-02-03] MEDS: LACTOBACILLUS ACIDOPHILUS 1 GM PACKET PO SCH ×3 (09:27→18:42)
[2018-02-03 11:35] VITALS: BP 157/74; PULSE 96; RESP 16; TEMP 98; O2SAT 95
[2018-02-03 14:00] VITALS: BP 145/82; PULSE 76; RESP 16; TEMP 97.8; O2SAT 96
[2018-02-03 21:13] VITALS: BP 108/65; PULSE 88; RESP 16; TEMP 99.3; O2SAT 96
[2018-02-03] MEDS: ENOXAPARIN SODIUM 40 MG/0.4 ML SYRINGE SQ SCH (21:23)
[2018-02-03] MEDS: SENNOSIDES 8.6 MG TAB PO SCH (21:23)
[2018-02-03 23:57] VITALS: BP 104/57; PULSE 88; RESP 16; TEMP 97.9; O2SAT 94
[2018-02-04 04:33] VITALS: BP 102/66; PULSE 71; RESP 16; TEMP 98.2; O2SAT 95
[2018-02-04 05:57] LABS: BILIRUBIN, URINE NEG (NEG); BLOOD, URINE NEG (NEG); GLUCOSE,URINE NEG (NEG); KETONE, URINE TRACE mg/dL (NEG); NITRITE,URINE NEG (NEG); SQUAMOUS EPITHELIAL CELL URINE <1 /hpf (0-5); URINE COLOR YELLOW (YELLW/STRAW); URINE LEUKOCYTE ESTERASE NEG (NEG)
[2018-02-04] MEDS: SODIUM CHLORIDE 0.9% FLUSH 10 ML FLUSH IV FLUSH SCH ×2 (07:45→21:00)
[2018-02-04 08:00] VITALS: BP 105/63; PULSE 73; RESP 16; TEMP 98.2; O2SAT 95
[2018-02-04] MEDS: LACTOBACILLUS ACIDOPHILUS 1 GM PACKET PO SCH ×3 (09:47→17:31)
[2018-02-04] MEDS: AMOXICILLIN/CLAVULANATE K 875 MG TAB PO SCH ×2 (09:47→21:58)
[2018-02-04] MEDS: PARoxetine HCL SUSP 20 MG/10 ML UDC PO SCH (09:47)
[2018-02-04] MEDS: QUEtiapine FUMARATE 100 MG TAB PO SCH ×2 (09:47→21:59)
--- NOTE | 2018-02-04 13:25 | HHI.FPPN ---
Subjective Remarks No new events. Cleared for DC. Objective Vitals Vital Signs Date Time Temp Pulse Resp B/P (MAP) Pulse Ox O2 Delivery O2 Flow Rate FiO2 02/04/18 08:00 98.2 73 16 105/63 (77) 95 02/04/18 04:33 98.2 71 16 102/66 (78) 95 02/03/18 23:57 97.9 88 16 104/57 (73) 94 02/03/18 21:13 99.3 88 16 108/65 (79) 96 02/03/18 14:00 97.8 76 16 145/82 (103) 96 I/O 02/03/18 02/03/18 02/03/18 02/04/18 02/04/18 02/04/18 07:00 15:00 23:00 07:00 15:00 23:00 Intake Total 240 ml Balance 240 ml Intake Oral 240 ml # Voids 2 4 1 # Bowel Movements 1 Objective Remarks CONSTITUTIONAL/GEN: normally nourished, lying in bed. No distress. LUNGS: respiratory effort is normal. CARDIOVASCULAR: Normal heart rate. MUSC: No peripheral cyanosis or edema A/P Assessment and Plan 67 YO female with dementia presenting with: Discharge Planning Medically cleared for discharge. Appreciate case management assistance in discharge planning and placement. Problem List: (1) UTI (urinary tract infection) ICD Codes: N39.0 - Urinary tract infection, site not specified Plan: -Continue Augmentin (Day #5) to complete 14 days - urine cx negative, DC contact precautions (2) Alzheimer disease ICD Codes: G30.9 - Alzheimer's disease, unspecified; F02.80 - Dementia in other diseases classified elsewhere without behavioral disturbance Status: Chronic Plan: Stable with no current behavioral disturbance. -Await placement; case management and hospice actively working to arrange (3) Anxiety ICD Codes: F41.9 - Anxiety disorder, unspecified Plan: -Ativan 0.5mg q4h PRN (4) FEN/GI/PPx Plan: Fluids: PO only Electrolytes: none Nutrition: regular basic diet -Nursing order to feed as pt cannot feed herself GI: none indicated PPx: Lovenox 40mg SQ daily Continue pt's home meds: -Compazine 10mg PO q6h PRN nausea/vomiting -Senokot 8.6mg PO qhs -Seroquel 100mg BID -Paxil 20mg daily Problem Qualifiers (1) UTI (urinary tract infection): Qualified Codes: N30.00 - Acute cystitis without hematuria (2) Alzheimer disease: Qualified Codes: G30.1 - Alzheimer's disease with late onset; F02.81 - Dementia in other diseases classified elsewhere with behavioral disturbance Zully Parada MD R1 Feb 04, 2018 13:24
[2018-02-04 19:40] VITALS: BP 115/68; PULSE 80; RESP 16; TEMP 98.3; O2SAT 96
[2018-02-04] MEDS: SENNOSIDES 8.6 MG TAB PO SCH (21:59)
[2018-02-04] MEDS: ENOXAPARIN SODIUM 40 MG/0.4 ML SYRINGE SQ SCH (21:59)
[2018-02-04 23:40] VITALS: BP 104/71; PULSE 80; RESP 16; TEMP 98.6; O2SAT 96
[2018-02-05 03:10] VITALS: BP 155/64; PULSE 80; RESP 16; TEMP 98.1; O2SAT 98
[2018-02-05 08:00] VITALS: BP 120/62; PULSE 61; RESP 17; TEMP 97.3; O2SAT 96
[2018-02-05] MEDS: SODIUM CHLORIDE 0.9% FLUSH 10 ML FLUSH IV FLUSH SCH ×2 (08:15→21:00)
[2018-02-05] MEDS: PARoxetine HCL SUSP 20 MG/10 ML UDC PO SCH (08:57)
[2018-02-05] MEDS: LACTOBACILLUS ACIDOPHILUS 1 GM PACKET PO SCH ×3 (08:57→18:17)
[2018-02-05] MEDS: AMOXICILLIN/CLAVULANATE K 875 MG TAB PO SCH ×2 (08:57→21:39)
[2018-02-05] MEDS: QUEtiapine FUMARATE 100 MG TAB PO SCH ×2 (08:57→21:39)
--- NOTE | 2018-02-05 15:00 | HHI.FPPN ---
Subjective Remarks 67 yo female with dementia admitted after apparent suicide attempt which in reality was just altered mental status from UTI due to ESBL E coli. Medically cleared for discharge, but awaiting placement. Due to dementia mostly non- communicative and does not answer most questions. Does say she feels good today. RN reports she has been more communicative gradually over last several days and eating better, now feeding herself. Objective Vitals Vital Signs Date Time Temp Pulse Resp B/P (MAP) Pulse Ox O2 Delivery O2 Flow Rate FiO2 02/05/18 08:00 97.3 61 17 120/62 (81) 96 02/05/18 03:10 98.1 80 16 155/64 (94) 98 02/04/18 23:40 98.6 80 16 104/71 (82) 96 02/04/18 19:40 98.3 80 16 115/68 (84) 96 I/O 02/04/18 02/04/18 02/04/18 02/05/18 02/05/18 02/05/18 07:00 15:00 23:00 07:00 15:00 23:00 Intake Total 240 ml Output Total 600 ml Balance -360 ml Intake Oral 240 ml Output Urine Total 600 ml # Voids 1 1 1 # Bowel Movements 1 Objective Remarks CONSTITUTIONAL/GEN: normally nourished, sitting up in bed. No distress. LUNGS: respiratory effort is normal. CARDIOVASCULAR: Normal heart rate. MUSC: No peripheral cyanosis or edema NEURO: Awake, alert. Poor attention. Intermittently responds to yes/no questions. A/P Assessment and Plan 67 YO female with dementia presenting with: Problem List: (1) UTI (urinary tract infection) ICD Codes: N39.0 - Urinary tract infection, site not specified Plan: - Continue Augmentin to complete 14 days - Repeat urine cx negative, DC contact precautions (2) Alzheimer disease ICD Codes: G30.9 - Alzheimer's disease, unspecified; F02.80 - Dementia in other diseases classified elsewhere without behavioral disturbance Status: Chronic Plan: Stable with no current behavioral disturbance. -Await placement; case management and hospice actively working to arrange (3) Anxiety ICD Codes: F41.9 - Anxiety disorder, unspecified Plan: -Ativan 0.5mg q4h PRN (4) FEN/GI/PPx Plan: Fluids: PO only Electrolytes: none Nutrition: regular basic diet -Nursing order to feed as pt cannot feed herself GI: none indicated PPx: Lovenox 40mg SQ daily Continue pt's home meds: -Compazine 10mg PO q6h PRN nausea/vomiting -Senokot 8.6mg PO qhs -Seroquel 100mg BID -Paxil 20mg daily Dispo: medically cleared for discharge. CM working on placement, appreciate assistance. Problem Qualifiers (1) UTI (urinary tract infection): Qualified Codes: N30.00 - Acute cystitis without hematuria (2) Alzheimer disease: Qualified Codes: G30.1 - Alzheimer's disease with late onset; F02.81 - Dementia in other diseases classified elsewhere with behavioral disturbance Pascual Cronin MD R2 Feb 05, 2018 3:00 pm
[2018-02-05 19:19] VITALS: BP 128/80; PULSE 87; RESP 16; TEMP 97.6; O2SAT 97
[2018-02-05] MEDS: ENOXAPARIN SODIUM 40 MG/0.4 ML SYRINGE SQ SCH (21:00)
[2018-02-05] MEDS: SENNOSIDES 8.6 MG TAB PO SCH (21:39)
[2018-02-05 23:31] VITALS: BP 113/65; PULSE 76; RESP 16; TEMP 98.5; O2SAT 95
[2018-02-06 04:01] VITALS: BP 118/71; PULSE 65; RESP 16; TEMP 98; O2SAT 99
[2018-02-06 08:00] VITALS: BP 129/76; PULSE 69; RESP 19; TEMP 97.8; O2SAT 96
[2018-02-06] MEDS: LACTOBACILLUS ACIDOPHILUS 1 GM PACKET PO SCH ×3 (08:50→18:38)
[2018-02-06] MEDS: AMOXICILLIN/CLAVULANATE K 875 MG TAB PO SCH ×2 (08:50→21:36)
[2018-02-06] MEDS: SODIUM CHLORIDE 0.9% FLUSH 10 ML FLUSH IV FLUSH SCH ×2 (08:50→21:00)
[2018-02-06] MEDS: PARoxetine HCL SUSP 20 MG/10 ML UDC PO SCH (08:50)
[2018-02-06] MEDS: QUEtiapine FUMARATE 100 MG TAB PO SCH ×2 (08:50→21:36)
[2018-02-06 12:00] VITALS: BP 116/66; PULSE 75; RESP 20; TEMP 98; O2SAT 99
--- NOTE | 2018-02-06 13:02 | HHI.FPPN ---
Subjective Remarks No acute events overnight. Objective Vitals Vital Signs Date Time Temp Pulse Resp B/P (MAP) Pulse Ox O2 Delivery O2 Flow Rate FiO2 02/06/18 12:00 98.0 75 20 116/66 (83) 99 02/06/18 08:00 97.8 69 19 129/76 (93) 96 02/06/18 04:01 98.0 65 16 118/71 (87) 99 02/05/18 23:31 98.5 76 16 113/65 (81) 95 02/05/18 19:19 97.6 87 16 128/80 (96) 97 I/O 02/05/18 02/05/18 02/05/18 02/06/18 02/06/18 02/06/18 07:00 15:00 23:00 07:00 15:00 23:00 Intake Total 820 ml Output Total 600 ml Balance 220 ml Intake Oral 820 ml Output Urine Total 600 ml # Voids 1 # Bowel Movements 0 Objective Remarks CONSTITUTIONAL/GEN: normally nourished, sitting up in bed. No distress. LUNGS: respiratory effort is normal. CARDIOVASCULAR: Normal heart rate. MUSC: No edema NEURO: Awake, alert. A/P Assessment and Plan 67 YO female with dementia presenting with: Problem List: (1) UTI (urinary tract infection) ICD Codes: N39.0 - Urinary tract infection, site not specified Plan: - Continue Augmentin to complete 14 days - Repeat urine cx negative, DC contact precautions (2) Alzheimer disease ICD Codes: G30.9 - Alzheimer's disease, unspecified; F02.80 - Dementia in other diseases classified elsewhere without behavioral disturbance Status: Chronic Plan: Stable with no current behavioral disturbance. -Await placement; case management and hospice actively working to arrange (3) Anxiety ICD Codes: F41.9 - Anxiety disorder, unspecified Plan: -Ativan 0.5mg q4h PRN (4) FEN/GI/PPx Plan: Fluids: PO only Electrolytes: none Nutrition: regular basic diet -Nursing order to feed as pt cannot feed herself GI: none indicated PPx: Lovenox 40mg SQ daily Continue pt's home meds: -Compazine 10mg PO q6h PRN nausea/vomiting -Senokot 8.6mg PO qhs -Seroquel 100mg BID -Paxil 20mg daily Dispo: medically cleared for discharge. CM working on placement, appreciate assistance. Problem Qualifiers (1) UTI (urinary tract infection): Qualified Codes: N30.00 - Acute cystitis without hematuria (2) Alzheimer disease: Qualified Codes: G30.1 - Alzheimer's disease with late onset; F02.81 - Dementia in other diseases classified elsewhere with behavioral disturbance Zully Parada MD R1 Feb 06, 2018 13:01
[2018-02-06 16:00] VITALS: BP 126/62; PULSE 70; RESP 19; TEMP 98; O2SAT 98
[2018-02-06 20:04] VITALS: PULSE 85; RESP 16; TEMP 98.1; O2SAT 92
[2018-02-06] MEDS: SENNOSIDES 8.6 MG TAB PO SCH (21:00)
[2018-02-06] MEDS: ENOXAPARIN SODIUM 40 MG/0.4 ML SYRINGE SQ SCH (21:00)
[2018-02-06 23:19] VITALS: BP 101/75; PULSE 80; RESP 16; TEMP 98; O2SAT 95
[2018-02-07 08:16] VITALS: BP 129/81; PULSE 78; RESP 18; TEMP 96.8; O2SAT 99
[2018-02-07] MEDS: SODIUM CHLORIDE 0.9% FLUSH 10 ML FLUSH IV FLUSH SCH ×2 (08:38→21:00)
[2018-02-07] MEDS: PARoxetine HCL SUSP 20 MG/10 ML UDC PO SCH (08:38)
[2018-02-07] MEDS: LACTOBACILLUS ACIDOPHILUS 1 GM PACKET PO SCH ×3 (08:38→18:24)
[2018-02-07] MEDS: QUEtiapine FUMARATE 100 MG TAB PO SCH ×2 (08:38→22:52)
[2018-02-07] MEDS: AMOXICILLIN/CLAVULANATE K 875 MG TAB PO SCH ×2 (08:38→22:52)
--- NOTE | 2018-02-07 12:20 | HHI.FPPN ---
Subjective Remarks No events overnight. Doing well. Stable. Objective Vitals Vital Signs Date Time Temp Pulse Resp B/P (MAP) Pulse Ox O2 Delivery O2 Flow Rate FiO2 02/07/18 08:16 96.8 78 18 129/81 (97) 99 02/06/18 23:19 98.0 80 16 101/75 (84) 95 02/06/18 20:04 98.1 85 16 92 02/06/18 16:00 98.0 70 19 126/62 (83) 98 I/O 02/06/18 02/06/18 02/06/18 02/07/18 02/07/18 02/07/18 06:59 14:59 22:59 06:59 14:59 22:59 Intake Total 600 ml Output Total 600 ml Balance 0 ml Intake Oral 600 ml Output Urine Total 600 ml # Bowel Movements 1 Objective Remarks CONSTITUTIONAL/GEN: normally nourished, sitting up in bed. No distress. LUNGS: respiratory effort is normal. CARDIOVASCULAR: Normal heart rate. MUSC: No edema NEURO: Awake, alert. A/P Assessment and Plan 67 YO female with dementia presenting with: Discharge Planning CLEAR FOR DC. Problem List: (1) UTI (urinary tract infection) ICD Codes: N39.0 - Urinary tract infection, site not specified Plan: - Continue Augmentin (Day #10) to complete 14 days - Repeat urine cx negative, DC contact precautions (2) Alzheimer disease ICD Codes: G30.9 - Alzheimer's disease, unspecified; F02.80 - Dementia in other diseases classified elsewhere without behavioral disturbance Status: Chronic Plan: Stable with no current behavioral disturbance. -Await placement; case management and hospice actively working to arrange (3) Anxiety ICD Codes: F41.9 - Anxiety disorder, unspecified Plan: -Ativan 0.5mg q4h PRN (4) FEN/GI/PPx Plan: Fluids: PO only Electrolytes: none Nutrition: regular basic diet -Nursing order to feed as pt cannot feed herself GI: none indicated PPx: Lovenox 40mg SQ daily Continue pt's home meds: -Compazine 10mg PO q6h PRN nausea/vomiting -Senokot 8.6mg PO qhs -Seroquel 100mg BID -Paxil 20mg daily Dispo: medically cleared for discharge. CM working on placement, appreciate assistance. Problem Qualifiers (1) UTI (urinary tract infection): Qualified Codes: N30.00 - Acute cystitis without hematuria (2) Alzheimer disease: Qualified Codes: G30.1 - Alzheimer's disease with late onset; F02.81 - Dementia in other diseases classified elsewhere with behavioral disturbance Zully Parada MD R1 Feb 07, 2018 12:20
[2018-02-07 20:21] VITALS: BP 121/67; PULSE 89; RESP 18; O2SAT 93
[2018-02-07] MEDS: ENOXAPARIN SODIUM 40 MG/0.4 ML SYRINGE SQ SCH (22:52)
[2018-02-07] MEDS: SENNOSIDES 8.6 MG TAB PO SCH (22:52)
[2018-02-08 09:00] VITALS: BP 151/74; PULSE 79; RESP 18; TEMP 97.3; O2SAT 98
[2018-02-08] MEDS: SODIUM CHLORIDE 0.9% FLUSH 10 ML FLUSH IV FLUSH SCH ×2 (09:00→21:00)
[2018-02-08] MEDS: LACTOBACILLUS ACIDOPHILUS 1 GM PACKET PO SCH ×3 (09:18→18:47)
[2018-02-08] MEDS: AMOXICILLIN/CLAVULANATE K 875 MG TAB PO SCH ×2 (09:18→22:18)
[2018-02-08] MEDS: QUEtiapine FUMARATE 100 MG TAB PO SCH ×2 (09:18→22:18)
[2018-02-08] MEDS: PARoxetine HCL SUSP 20 MG/10 ML UDC PO SCH (09:18)
--- NOTE | 2018-02-08 12:54 | HHI.FPPN ---
Subjective Remarks Pt. seen briefly with Dr. Parada. No new changes. Objective Vitals Vital Signs Date Time Temp Pulse Resp B/P (MAP) Pulse Ox O2 Delivery O2 Flow Rate FiO2 02/08/18 09:00 97.3 79 18 151/74 (99) 98 02/07/18 20:21 89 18 121/67 (85) 93 I/O 02/07/18 02/07/18 02/07/18 02/08/18 02/08/18 02/08/18 07:00 15:00 23:00 07:00 15:00 23:00 Intake Total 800 ml Output Total 250 ml Balance 550 ml Intake Oral 800 ml Output Urine Total 250 ml # Voids 2 Objective Remarks CONSTITUTIONAL/GEN: normally nourished, sitting up in bed. No distress. LUNGS: respiratory effort is normal. CARDIOVASCULAR: Normal heart rate. MUSC: No edema NEURO: Awake, alert. A/P Assessment and Plan 67 YO female with dementia presenting with: Discharge Planning CLEAR FOR DC. Problem List: (1) UTI (urinary tract infection) ICD Codes: N39.0 - Urinary tract infection, site not specified Plan: - Continue Augmentin (Day #11) to complete 14 days - Repeat urine cx negative, DC contact precautions (2) Alzheimer disease ICD Codes: G30.9 - Alzheimer's disease, unspecified; F02.80 - Dementia in other diseases classified elsewhere without behavioral disturbance Status: Chronic Plan: Stable with no current behavioral disturbance. -Await placement; case management and hospice actively working to arrange (3) Anxiety ICD Codes: F41.9 - Anxiety disorder, unspecified Status: Chronic Plan: -Ativan 0.5mg q4h PRN (4) FEN/GI/PPx Plan: Fluids: PO only Electrolytes: none Nutrition: regular basic diet -Nursing order to feed as pt cannot feed herself GI: none indicated PPx: Lovenox 40mg SQ daily Continue pt's home meds: -Compazine 10mg PO q6h PRN nausea/vomiting -Senokot 8.6mg PO qhs -Seroquel 100mg BID -Paxil 20mg daily Dispo: medically cleared for discharge. CM working on placement, appreciate assistance. Problem Qualifiers (1) UTI (urinary tract infection): Qualified Codes: N30.00 - Acute cystitis without hematuria (2) Alzheimer disease: Qualified Codes: G30.0 - Alzheimer's disease with early onset; F02.81 - Dementia in other diseases classified elsewhere with behavioral disturbance Yessy Larios MD Feb 08, 2018 12:54
[2018-02-08] MEDS: SENNOSIDES 8.6 MG TAB PO SCH (22:18)
[2018-02-08] MEDS: ENOXAPARIN SODIUM 40 MG/0.4 ML SYRINGE SQ SCH (22:18)
[2018-02-09] MEDS: SODIUM CHLORIDE 0.9% FLUSH 10 ML FLUSH IV FLUSH SCH (08:17)
[2018-02-09] MEDS: LACTOBACILLUS ACIDOPHILUS 1 GM PACKET PO SCH ×2 (08:17→13:16)
[2018-02-09] MEDS: QUEtiapine FUMARATE 100 MG TAB PO SCH (08:18)
[2018-02-09] MEDS: AMOXICILLIN/CLAVULANATE K 875 MG TAB PO SCH (08:18)
[2018-02-09] MEDS: PARoxetine HCL SUSP 20 MG/10 ML UDC PO SCH (08:18)
[2018-02-09 08:31] VITALS: BP 120/82; PULSE 78; RESP 18; TEMP 97.6; O2SAT 94
[2018-02-09] MEDS ORDERED: AMOX875T2 PO (15:35)
[2018-02-09] MEDS ORDERED: LORA0.5T PO (15:35)
--- NOTE | 2018-02-09 16:26 | HHI.FPPN ---
Subjective Remarks 67 yo female with dementia admitted after apparent suicide attempt which in reality was just altered mental status from UTI due to ESBL E coli. Medically cleared for discharge, but awaiting placement. Due to dementia mostly non- communicative and does not answer most questions. RN reports no events or new apparent symptoms. Objective Vitals Vital Signs Date Time Temp Pulse Resp B/P (MAP) Pulse Ox O2 Delivery O2 Flow Rate FiO2 02/09/18 08:31 97.6 78 18 120/82 (95) 94 I/O 02/08/18 02/08/18 02/08/18 02/09/18 02/09/18 02/09/18 07:00 15:00 23:00 07:00 15:00 23:00 # Voids 1 1 1 # Bowel Movements 1 1 Imaging Last Impressions Chest X-Ray 01/26/182056 Signed Impressions: CONCLUSION: Negative examination. Head CT 01/26/181718 Signed Impressions: CONCLUSION: 1. Negative CT Head non contrast. Objective Remarks CONSTITUTIONAL/GEN: normally nourished, sitting up in bed. Calm. No distress. LUNGS: respiratory effort is normal. CARDIOVASCULAR: Normal heart rate. MUSC: No edema NEURO: Awake, alert. Medications and IVs Current Medications Medications (Trade) Dose Ordered Sig/Tomas Route Start Time Stop Time Status Last Admin (Paxil Liq) 20 mg DAILY PO 01/27/18 09:00 02/09/18 08:18 (Compazine) 10 mg Q6H PRN PO 01/26/18 21:00 (Senokot) 8.6 mg HS PO 01/26/18 21:00 02/08/18 22:18 (NS Flush) 2 ml UNSCH PRN IV FLUSH 01/26/18 21:00 (NS Flush) 2 ml BID IV FLUSH 01/26/18 21:00 02/06/18 08:50 (Tylenol) 650 mg Q4H PRN PO 01/26/18 21:00 (Lovenox Inj) 40 mg Q24H SQ 01/26/18 21:00 02/08/18 22:18 (Narcan Inj) 0.4 mg UNSCH PRN IV PUSH 01/26/18 21:00 (SEROquel) 100 mg BID PO 01/27/18 09:00 02/09/18 08:18 (Ativan) 0.5 mg Q4H PRN PO 01/26/18 21:30 02/01/18 22:03 (Lactinex Pkt) 1 gm TID PO 01/30/18 13:00 02/09/18 13:16 (Augmentin) 875 mg Q12HR PO 01/30/18 21:00 02/09/18 08:18 A/P Assessment and Plan 67 YO female with dementia presenting with: Problem List: (1) UTI (urinary tract infection) ICD Codes: N39.0 - Urinary tract infection, site not specified Plan: - Continue Augmentin to complete 14 days (2) Alzheimer disease ICD Codes: G30.9 - Alzheimer's disease, unspecified; F02.80 - Dementia in other diseases classified elsewhere without behavioral disturbance Status: Chronic Plan: Stable with no current behavioral disturbance. -Await placement; case management and hospice actively working to arrange (3) Anxiety ICD Codes: F41.9 - Anxiety disorder, unspecified Status: Chronic Plan: -Ativan 0.5mg q4h PRN (4) FEN/GI/PPx Plan: Fluids: PO only Electrolytes: none Nutrition: regular basic diet -Nursing order to feed as pt cannot feed herself GI: none indicated PPx: Lovenox 40mg SQ daily Continue pt's home meds: -Compazine 10mg PO q6h PRN nausea/vomiting -Senokot 8.6mg PO qhs -Seroquel 100mg BID -Paxil 20mg daily Dispo: medically cleared for discharge. CM working on placement, now accepted at SNF. Discharge today PM. Problem Qualifiers (1) UTI (urinary tract infection): Qualified Codes: N30.00 - Acute cystitis without hematuria (2) Alzheimer disease: Qualified Codes: G30.0 - Alzheimer's disease with early onset; F02.81 - Dementia in other diseases classified elsewhere with behavioral disturbance Pascual Cronin MD R2 Feb 09, 2018 4:26 pm
== END 2018-02-09 16:24 ==
LOC: NEDAMB 16:14 → NEDA 19:42 → NEPFCDU 23:03
PROVIDERS: ADMIT Family Medicine; ATTEND Family Medicine
DX: N30.00 Acute cystitis without hematuria (principal); B96.20 Unspecified Escherichia coli [E. coli] as the cause of diseases classified elsewhere; F02.81 Dementia in other diseases classified elsewhere, unspecified severity, with behavioral disturbance; G30.1 Alzheimer's disease with late onset; F41.9 Anxiety disorder, unspecified; I67.82 Cerebral ischemia; Z66 Do not resuscitate; Z16.12 Extended spectrum beta lactamase (ESBL) resistance; Z79.899 Other long term (current) drug therapy
CPT/HCPCS: 70450; 71046; 80053; 80307; 81001; 83735; 84443; 85025; 87040; 87077; 87086; 87186; 96361; 96365; 96366; 96372; 96376; 99285; G0378; J0295; J0696; J1650; J7030; P9612